=== PATIENT | female | born 1950 | race Caucasian/White ===

== ENCOUNTER 2017-02-10 10:48 | Inpatient (IN) | payer OTHER ==
[2017-01-23 14:17] VITALS: BMI 40.0
[2017-01-23 14:26] LABS: BASO % 0.5 %; BASO ABS # 0.04 K/uL (0-0.2); COMPLETE YES; EOS % 5.3 %; IG% 0.4 %; LYMPH ABS # 2.15 K/uL (1.2-3.4); MEAN CELL VOLUME 90.3 fL (80-100); MEAN CORPUSCULAR HGB CONC 34.4 g/dl (32-36); MEAN PLATELET VOLUME 9.5 fL (7.4-10.4); MONO % 6.1 %; NEUT % 58.7 %; PLATELET COUNT 298 K/uL (130-400); RED BLOOD COUNT 4.32 M/uL (4.2-5.4); WHITE BLOOD COUNT 7.41 K/uL (4.8-10.8)
[2017-01-23 14:43] LABS: PARTIAL THROMBOPLASTIN RATIO 1.1
[2017-01-23 15:35] LABS: BUN/CREATININE RATIO 17.8 (10-20); C-REACTIVE PROTEIN 1.37 mg/dl (0-0.29); CALCIUM 9.7 mg/dl (8.5-10.1); CREATININE 0.83 mg/dl (0.60-1.20); POTASSIUM 4.6 mmol/L (3.5-5.1)
--- NOTE | 2017-01-23 15:45 | DIAGNOSTIC IMAGING REPORT ---
CHEST 2 VIEWS ROUTINE CLINICAL HISTORY: Preoperative evaluation. COMPARISON STUDY: Chest radiograph January 05, 2010. FINDINGS: Lung volumes are normal. There is no pneumothorax or pleural effusion. Pulmonary vascularity is normal. Cardiomediastinal silhouette is stable. Cardiac size is at the upper limits of normal. IMPRESSION: No acute cardiopulmonary findings. Electronically signed by: Hector Varela M.D. 01/23/2017 3:43 PM Dictated Date/Time: 01/23/2017 3:42 PM
--- NOTE | 2017-01-24 09:09 | PAT Medication Instructions ---
Service Date Jan 24, 2017. Current Home Medication List Losartan Potassium (Cozaar), 25 MG PO QAM Naproxen (Aleve), 440 MG PO HS Sertraline (Zoloft), 25 MG PO QAM Medication Instructions For Your Scheduled Surgery Naproxen (Aleve), 440 MG PO HS Check with surgeon for instructions) - Hold the following medications the morning of surgery: Losartan Potassium (Cozaar), 25 MG PO QAM - Take the following medications the morning of surgery with a sip of water: Sertraline (Zoloft), 25 MG PO QAM If you have any questions please call us at [phone] (Katarzyna Gonzalez PA-C) or [phone] or [phone]
--- NOTE | 2017-02-04 01:33 | HISTORY & PHYSICAL EXAMINATION ---
DATE OF ADMISSION: 02/10/2017 CHIEF COMPLAINT: Right knee pain, discomfort after partial knee replacement. HISTORY OF PRESENT ILLNESS: A 66-year-old white female who is well known to me from a previous left partial knee replacement done back in 2009. She had a Repicci partial knee replacement in her right knee back in February of 2003. Over the past several years, she has developed increased pain and discomfort in her right knee. She has been followed by Dr. Hernandez. She has had several injections which provided some temporary relief only. Pain has become more debilitating. The more she walks, the more she limps. Pain is mostly medial. She would like to have her knee revised. Of note, the patient never had any history of infections, problems with the right knee. She did have an elevated sed rate and C-reactive protein. We attempted to aspirate her knee, but could not get much out of it. PAST MEDICAL HISTORY: Significant for: 1. Hypertension. 2. Arthritis. 3. Obesity, BMI 41. 4. Depression. PAST SURGICAL HISTORY: Include: 1. Left multiple wearing partial knee replacement done by myself on 02/26/2010. 2. Right Repicci partial knee replacement by done by Dr. Hernandez 02/26/2003. ALLERGIES: None. CURRENT MEDICATIONS: 1. Zoloft. 2. Unspecified blood pressure medicine. SOCIAL HISTORY: Over 66-year-old female. 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 She is . One drink per week. FAMILY HISTORY: Noncontributory. REVIEW OF SYSTEMS: Negative for diabetes, neurologic problems, vascular problems, bleeding disorders. No chest pain, no shortness of breath. No history of DVT or PE. PHYSICAL EXAMINATION: GENERAL: Reveals a healthy pleasant, middle-aged female. She looks in reasonably good health. HEENT: Benign. NECK: Supple. No lymphadenopathy. LUNGS: Clear to auscultation. HEART: Regular rate and rhythm. ABDOMEN: Soft, nontender, nondistended. EXTREMITIES: Grossly neurovascularly intact except as follows: Examination of the right lower extremity reveals the patient walks with an antalgic gait. She has got a well-healed anteromedial incision. She has a trace knee effusion. With weightbearing, she does go into more varus with a bit of a varus thrust. Range of motion is 5 degrees short of full extension and 20 degrees of flexion. X-RAYS: X-rays of the right knee reviewed. It shows collapse of her medial tibial plateau and failure of the Repicci knee replacement. She does have progression of arthritis laterally with osteophytes off the lateral femoral condyle and lateral tibial plateau. LABORATORY DATA: We did do a lab workup and white cell count was normal. Sed rate is slightly elevated at 38 and C-reactive protein 1.38. In light of this, we attempted to aspirate her knee, but did not get any fluid out. I do not think there is any significant chance of infection. ASSESSMENT: A 66-year-old white female 14 years out from a Repicci partial knee replacement with progression of her arthritis and failure of the partial knee replacement. The tibial components tipped into varus. She developed progressive arthritis around this. PLAN: We talked about treatment and she is ready to proceed with a definitive treatment. We will take her to the operating room and revise her partial to a full knee replacement. The risks and benefits of this procedure were explained to the patient including but not limited to DVT, PE, , infection, neurological injury, vascular injury, bleeding problem, pain, limited range of motion, stiffness, failure to relieve symptoms, incomplete relief of symptoms, fracture, leg length inequality, nerve palsy, etc. The patient understands and desires and informed consent was obtained. LUIS F
[~2017-02-10] VITALS: Ht 165.1 cm; Wt 111.3 kg
[~2017-02-10 10:48] MED LIST: ACETAMINOPHEN 500 MG TAB PO SCH; BUPIVACAINE 0.25% 30 ML VIAL ONE; BUPIVACAINE 0.5 % 5 MG/1 ML PF 10ML VIAL ONE; BUPIVACAINE LIPOSOME 266 MG, BUPIVACAINE/EPINEPHRINE INJ 50 ML, SODIUM CHLORIDE 0.9% PF... INFIL SCH; CEFAZOLIN 2000 MG/60 ML D5W 60 ML IV SCH; FAMOTIDINE 20 MG TAB PO SCH; GABAPENTIN 300 MG CAP PO SCH; LACTATED RINGER'S 1000ML 1,000 ML IV SCH; LACTATED RINGER'S 1000ML IV SCH; LOSA1TAB PO; METOCLOPRAMIDE HCL 10 MG TAB PO SCH; MIDAZOLAM HCL 1 MG/ML 2ML VIAL ONE; NAPR1TAB9 PO; PROPOFOL IV EMULSION 10 MG/ML 20 ML VIAL IV ONE; SCOPOLAMINE 1.5 MG TDSY TD SCH; SERT25TA PO; TRANEXAMIC ACID INJ 1,000 MG in SODIUM CHLORIDE 0.9% 100ML 100 ML IV SCH
[2017-02-10 11:19] VITALS: BP 176/84; PULSE 64; TEMP 36.4; O2SAT 94; Ht 165.1 cm; Wt 111.3 kg
--- NOTE | 2017-02-10 11:34 | History & Physical Bridge Note ---
H&P Re-Evaluation Bridge Note: I have examined the patient, reviewed the History & Physical and in the interval since the performance of the History & Physical I have noted the following changes of clinical significance: No changes noted
[2017-02-10] MEDS ORDERED: SODIUM CHLORIDE 0.9% PF 50 ML VIAL ONE (13:15)
[2017-02-10] MEDS ORDERED: BACITRACIN 50000 UNIT VIAL ONE ×2 (13:15→15:10)
[2017-02-10] MEDS ORDERED: BUPIVACAINE/EPINEPHRINE 0.25% 1:200,000 30 ML VIAL ONE ×2 (13:15→13:26)
[2017-02-10] MEDS ORDERED: BUPIVACAINE LIPOSOME 1/3% 266 MG/20 ML VIAL INFIL ONE (13:15)
[2017-02-10] MEDS ORDERED: VANCOMYCIN HCL 1000MG/20ML VIAL ONE (13:17)
[2017-02-10] MEDS ORDERED: ATROPINE SULFATE 0.1 MG/ML 5ML SYR IV PRN (13:30)
[2017-02-10] MEDS ORDERED: EpHEDrine SULFATE INJ 50 MG/ML AMP IV PRN (13:30)
[2017-02-10] MEDS ORDERED: KETOROLAC TROMETHAMINE 30 MG/ML VIAL IV. PRN (13:30)
[2017-02-10] MEDS ORDERED: ONDANSETRON INJ 2 MG/ML 2 ML VIAL IV PRN ×2 (13:30→16:00)
[2017-02-10] MEDS ORDERED: PHENYLEPHRINE 100MCG/ML 5ML SYR IV PRN (13:30)
[2017-02-10] MEDS ORDERED: HYDROmorphone INJ 2 MG/ML SYR/VIAL IV PRN (13:30)
[2017-02-10] MEDS ORDERED: MIDAZOLAM HCL 1 MG/ML 2ML VIAL ONE (13:40)
[2017-02-10] MEDS ORDERED: PROPOFOL IV EMULSION 10 MG/ML 20 ML VIAL IV ONE ×3 (14:08→14:12)
[2017-02-10] MEDS ORDERED: PHENYLEPHRINE 100MCG/ML 5ML SYR ONE (14:23)
--- NOTE | 2017-02-10 15:47 | [facility] Post Operative Brief Note ---
Immediate Operative Summary Operative Date Feb 10, 2017. 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 Andrade Patient Access Manager Surgeon(s) Joel Kessler PA-C Estimated Blood Loss 50mL Findings Failed Right Uni-Knee Progression of Arthritis Fluids (cc crystalloids) 1500cc Specimens Micro #1 Stat gram stain aerobic and anaerobic Right Knee sent at 1410 Specimens Drains None Anesthesia Spinal Complication(s) None Disposition Recovery Room / PACU
[2017-02-10] MEDS ORDERED: METOCLOPRAMIDE HCL INJ 5 MG/ML 2 ML VIAL IV PRN (16:00)
[2017-02-10] MEDS ORDERED: ALUMINUM/MAGNESIUM/SIMETH (MAALOX MAX) 30 ML UDC PO PRN (16:00)
[2017-02-10] MEDS: CHECK SCOPOLAMINE PATCH PLACEMENT SCH (16:00)
[2017-02-10] MEDS ORDERED: SILVER SULFADIAZINE 1% CR 50 GM JAR EXT PRN (16:00)
[2017-02-10] MEDS ORDERED: ZOLPIDEM TARTRATE 5 MG TAB PO PRN (16:00)
[2017-02-10] MEDS ORDERED: BISACODYL 10 MG SUPP PR PRN (16:00)
[2017-02-10] MEDS ORDERED: MAGNESIUM HYDROXIDE SUSP 30 ML UDC PO PRN (16:00)
--- NOTE | 2017-02-10 16:44 | DIAGNOSTIC IMAGING REPORT ---
RIGHT KNEE 1 OR 2 VIEWS ROUTINE CLINICAL HISTORY: Degenerative arthritis COMPARISON: None. DISCUSSION: There are postsurgical changes of a total right knee arthroplasty with a long stem tibial prosthesis. The femoral and tibial components appear well seated. Overlying surgical drains are evident. There are no acute fractures. There is air within soft tissues consistent with recent surgery. IMPRESSION: Postsurgical changes of a total right knee arthroplasty. Electronically signed by: Yuval Locke M.D. 02/10/2017 4:43 PM Dictated Date/Time: 02/10/2017 4:42 PM
--- NOTE | 2017-02-10 16:54 | Anesthesiology Progress Note ---
Anesthesia Post Op Note Date & Time Feb 10, 2017 at 16:54 Vital Signs Pain Intensity: 0 Vital Signs Past 12 Hours Date Time Temp Pulse Resp B/P Pulse Ox O2 Delivery O2 Flow Rate FiO2 02/10/17 16:45 36.5 59 17 147/72 98 Nasal Cannula 2 02/10/17 16:35 61 16 134/75 99 Nasal Cannula 2 02/10/17 16:25 61 16 151/75 100 Mask 10 02/10/17 16:15 66 17 125/77 100 Mask 10 02/10/17 16:05 70 14 163/70 100 Mask 10 02/10/17 15:55 36.3 79 15 155/77 97 Mask 10 02/10/17 11:19 36.4 64 18 176/84 94 Room Air Notes Mental Status: alert / awake / arousable, participated in evaluation Pt Amnestic to Procedure: Yes Nausea / Vomiting: adequately controlled Pain: adequately controlled Airway Patency, RR, SpO2: stable & adequate BP & HR: stable & adequate Hydration State: stable & adequate Neuraxial Anesthesia: was administered, sensory block is resolving Anesthetic Complications: no major complications apparent
[2017-02-10 17:10] VITALS: BP 142/77; PULSE 63; TEMP 36.5; O2SAT 97
[2017-02-10 17:40] VITALS: BP 145/75; PULSE 52; TEMP 36.4; O2SAT 100
[2017-02-10 18:10] VITALS: BP 149/78; PULSE 62; TEMP 36.3; O2SAT 100
[2017-02-10] MEDS: KETOROLAC TROMETHAMINE 15 MG/ML VIAL IV. SCH (18:23)
[2017-02-10] MEDS: D5W AND 1/2NSS + 20MEQ KCL 1,000 ML IV SCH (18:23)
[2017-02-10 19:10] VITALS: BP 152/82; PULSE 58; TEMP 36.3; O2SAT 99
[2017-02-10] MEDS: FERROUS GLUCONATE 324 MG TAB PO SCH (19:12)
[2017-02-10] MEDS: OXYCODONE HCL IR 5 MG TAB (IMMEDIATE RELEASE) PO PRN (19:12)
[2017-02-10] MEDS: MoRPHine SULFATE 2 MG/ML CARP IV PRN (19:49)
[2017-02-10 20:10] VITALS: BP 164/89; PULSE 58; TEMP 36.3; O2SAT 98
[2017-02-10] MEDS: ASPIRIN 325 MG ECTAB PO SCH (20:36)
[2017-02-10] MEDS: DOCUSATE SODIUM 100 MG CAP PO SCH (20:37)
[2017-02-10] MEDS: TAPENTADOL ER 50 MG TABCR PO SCH (20:37)
[2017-02-10] MEDS: ACETAMINOPHEN 500 MG TAB PO SCH (21:38)
[2017-02-10] MEDS: CEFAZOLIN IV 2,000 MG in DEXTROSE 5% 50ML 50 ML IV SCH (21:57)
[2017-02-10] MEDS ORDERED: TRANEXAMIC ACID INJ 1,000 MG in SODIUM CHLORIDE 0.9% 100ML 100 ML IV SCH (22:00)
[2017-02-11] VITALS (8 sets, daily range): BP systolic 115–165; BP diastolic 68–85; PULSE 67–83; TEMP 36.8–37.3; O2SAT 90–96
[2017-02-11] MEDS: CHECK SCOPOLAMINE PATCH PLACEMENT SCH ×4 (00:07→23:35)
[2017-02-11] MEDS: KETOROLAC TROMETHAMINE 15 MG/ML VIAL IV. SCH ×5 (00:08→23:35)
[2017-02-11] MEDS: D5W AND 1/2NSS + 20MEQ KCL 1,000 ML IV SCH ×2 (03:05→09:10)
[2017-02-11] MEDS: CEFAZOLIN IV 2,000 MG in DEXTROSE 5% 50ML 50 ML IV SCH (06:16)
[2017-02-11] MEDS: ACETAMINOPHEN 500 MG TAB PO SCH ×3 (06:17→20:59)
[2017-02-11 06:36] LABS: HEMATOCRIT 33.9 % (37-47); MEAN CELL VOLUME 93.6 fL (80-100); MEAN CORPUSCULAR HEMOGLOBIN 30.9 pg (25-34); MEAN PLATELET VOLUME 9.7 fL (7.4-10.4); PLATELET COUNT 252 K/uL (130-400); RED BLOOD COUNT 3.62 M/uL (4.2-5.4); WHITE BLOOD COUNT 8.45 K/uL (4.8-10.8)
[2017-02-11 07:13] LABS: BUN/CREATININE RATIO 16.9 (10-20); CREATININE 0.89 mg/dl (0.60-1.20); POTASSIUM 4.1 mmol/L (3.5-5.1)
[2017-02-11] MEDS: ASPIRIN 325 MG ECTAB PO SCH ×2 (08:22→20:58)
[2017-02-11] MEDS: MULTIVITAMIN TAB PO SCH (08:22)
[2017-02-11] MEDS: LOSARTAN POTASSIUM 25 MG TAB PO SCH (08:22)
[2017-02-11] MEDS: SERTRALINE HCL 50 MG TAB PO SCH (08:22)
[2017-02-11] MEDS: FERROUS GLUCONATE 324 MG TAB PO SCH ×3 (08:22→17:30)
[2017-02-11] MEDS: DOCUSATE SODIUM 100 MG CAP PO SCH ×2 (08:22→20:59)
[2017-02-11] MEDS: PANTOprazole SOD 40 MG TAB PO SCH (08:23)
[2017-02-11] MEDS: TAPENTADOL ER 50 MG TABCR PO SCH ×2 (08:26→20:59)
--- NOTE | 2017-02-11 08:49 | PROGRESS NOTE ---
DATE: 02/11/2017 SUBJECTIVE: A 66-year-old white female postop day 1 from a revision of partial to full knee replacement. She is doing pretty well. Pain has not been bad at all. No chest pain or shortness of breath. Not feeling dizzy or lightheaded. OBJECTIVE: VITAL SIGNS: Temperature 37.2. Vital signs stable. PHYSICAL EXAMINATION: GENERAL: Reveals a pleasant middle-aged female. She is lying in bed, looks pretty comfortable. LUNGS: Clear to auscultation. HEART: Regular rate and rhythm. ABDOMEN: Soft, nontender, nondistended. EXTREMITIES: Grossly neurovascularly intact except as follows: Examination of the right leg reveals dressing to be clean, dry and intact. She can dorsiflex and plantarflex her foot appropriately. NEUROLOGIC: She is neurologically intact. LABORATORY DATA: Hemoglobin 11.2, hematocrit 33.9. Electrolytes are stable. CULTURE RESULTS: Culture results are pending. Gram stain, a few WBCs, no organisms. ASSESSMENT: This is a 66-year-old white female postop day 1 from revision of a partial to full knee replacement, doing well. Pain is controlled. There are no concerns for infection. PLAN: 1. DVT prophylaxis including thigh-high TEDs, SCDs, and aspirin twice a day. 2. PT/OT. Weightbearing as tolerated. Right total knee protocol. 3. Pain control, doing pretty well with current pain regimen. 4. Disposition: Plan to discharge to home with some home health once adequately recovered.
[2017-02-11] MEDS: OXYCODONE HCL IR 5 MG TAB (IMMEDIATE RELEASE) PO PRN (13:39)
[2017-02-11] MEDS: MoRPHine SULFATE 2 MG/ML CARP IV PRN (14:17)
[2017-02-11] MEDS ORDERED: RXC5 PO (20:20)
[2017-02-11] MEDS ORDERED: ASPEC325 PO (20:20)
[2017-02-11] MEDS ORDERED: ACET-1138 PO (20:20)
--- NOTE | 2017-02-11 20:23 | Discharge Instructions ---
Discharge Instructions Date of Service Feb 11, 2017. Admission Reason for Admission: Right Knee Pain, Degenerative Joint Disease Discharge Discharge Diagnosis / Problem: Right Knee Replacement Discharge Goals Goal(s): Decrease discomfort, Improve function, Increase independence, Improve disease control, Therapeutic intervention Activity Recommendations Activity Limitations: per Instructions/Follow-up section Weightbearing Status: Right weightbearing . Instructions / Follow-Up Instructions / Follow-Up ACTIVITY RECOMMENDATIONS: Physical Therapy: * You will go to physical therapy three times each week for four to six weeks after your surgery in order to regain your knee range of motion and to retrain your knee to work properly. * It is just as important to make sure you are getting your knee perfectly straight as it is to regain your knee bend. * Taking a pain pill an hour before therapy can help you have a more productive and comfortable therapy session. Home Exercise: * You were shown a series of exercises (heel props, heel slides, etc.) in the hospital. Do these exercises three to four times each day including the exercises you were shown in physical therapy. Walking: * Get up and walk several times each day. For the first four weeks, try not to stand or walk for more than one hour at a time. If you do stand or walk for more than one hour, you will not hurt anything, but your knee and leg will likely swell. * As you feel comfortable, you may change from the walker or crutches to a cane and then to independent walking. MEDICATIONS: New Medicine: * You will likely be taking one or more of these medications: 1. Oxycodone - A quick and shorter-acting pain medication. Take one to two tablets every four to six hours to lessen your pain. 2. Aspirin - Thins your blood to lessen the chance of forming a blood clot. * The most common side effects of pain medicine and iron are nausea and constipation. If nausea or constipation is too much of a problem or if you have any questions about your new medicines or doses, call [facility] at . We will try to help you manage these issues. VERY IMPORTANT TO READ AND REVIEW" Pain: * The immediate post-operative period after knee replacement surgery is often quite painful. * You are given a prescription for pain medicine. You should take it, as directed, when you need it, especially before physical therapy and before going to bed. Pain that interferes with sleep is very common and can last several months. * You will likely need pain medicine for the first four to six weeks. It will not stop all of the pain. The pain will lessen and as you feel better, you may change to milder pain medicine such as Tylenol. * The most common side effects of pain medicine are nausea and constipation, so don't take more than you need. SPECIAL CARE INSTRUCTIONS: TEDs/Elastic Stockings: * The white elastic stockings help limit swelling and prevent blood clots from forming in your legs. The more you wear them, the more they work. * Wear them for six weeks after knee replacement surgery and four weeks after partial knee replacement. Prevention of Infection: * Take antibiotics one hour before any dental cleaning, dental work, urological procedure, gastrointestinal procedure or any invasive surgery in order to prevent your new joint from getting infected. * You may get the antibiotics from the doctor performing the procedure or you may call our office at before and we will call in a prescription to the pharmacy of your choice. Things to Watch For: * Drainage from the incision site that occurs more than one week after your surgery. * Severely increased knee/leg pain or swelling. * Increased redness at the incision site. * Fever above 102 degrees Fahrenheit. * Unusual chest pain or shortness of breath. * Unusual pain or burning with urination. Call [facility] at with any of the above problems or if you have any questions about your medicines or recovery. FOLLOW UP VISIT: Make an appointment to see your doctor for approximately two weeks after surgery for a progress check and staple removal by calling the office at . Current Hospital Diet Patient's current hospital diet: Regular Diet Discharge Diet Recommended Diet: Regular Diet Procedures Procedures Performed: Right knee uni compartment revision to Right Total Knee Arthoplasty Pending Studies Studies pending at discharge: no Medical Emergencies . Who to Call and When: Medical Emergencies: If at any time you feel your situation is an emergency, please call [phone] immediately. . Non-Emergent Contact Non-Emergency issues call your: Surgeon . "Provider Documentation" section prepared by Herb Andrade. . VTE Core Measure Inpt VTE Proph given/why not?: Other Anticoagulation, T.E.D. Stockings, SCD's
[2017-02-12] MEDS: ACETAMINOPHEN 500 MG TAB PO SCH (04:54)
[2017-02-12] MEDS: KETOROLAC TROMETHAMINE 15 MG/ML VIAL IV. SCH (04:56)
[2017-02-12 07:45] VITALS: BP 143/86; PULSE 69; TEMP 37; O2SAT 94
--- NOTE | 2017-02-12 08:28 | PROGRESS NOTE ---
DATE: 02/12/2017 SUBJECTIVE: A 66-year-old white female postop day #2 from revision of a partial to full knee replacement. She is doing pretty well. Painful after therapy and that is about it. No chest pain or shortness of breath. Not feeling dizzy or lightheaded. OBJECTIVE: VITAL SIGNS: Temperature 37.3. Vital signs stable. PHYSICAL EXAMINATION: GENERAL: Reveals a pleasant elderly female. She is lying in bed, looks pretty comfortable. EXTREMITIES: Examination of the right leg reveals the dressing to be clean, dry and intact. Some moderate swelling. She can do a straight leg raise with quite a bit of effort. She can dorsiflex and plantarflex her foot appropriately. She is neurologically intact. LABORATORY DATA: Culture results are no growth to date. ASSESSMENT: A 66-year-old white female postop day #2 from a right revision partial to full knee replacement, doing pretty well. Pain has been reasonably well controlled. PLAN: 1. DVT prophylaxis including thigh-high TEDs, SCDs, and aspirin twice a day. 2. PT/OT. Weightbearing as tolerated. Right total knee protocol. 3. Pain control, doing pretty well with current pain regimen. 4. Disposition: Plan to discharge to home with some home health later today. LUIS F
[2017-02-12] MEDS: OXYCODONE HCL IR 5 MG TAB (IMMEDIATE RELEASE) PO PRN (08:52)
[2017-02-12] MEDS: MULTIVITAMIN TAB PO SCH (08:53)
[2017-02-12] MEDS: SERTRALINE HCL 50 MG TAB PO SCH (08:53)
[2017-02-12] MEDS: PANTOprazole SOD 40 MG TAB PO SCH (08:53)
[2017-02-12] MEDS: ASPIRIN 325 MG ECTAB PO SCH (08:53)
[2017-02-12] MEDS: FERROUS GLUCONATE 324 MG TAB PO SCH (08:53)
[2017-02-12] MEDS: LOSARTAN POTASSIUM 25 MG TAB PO SCH (08:53)
[2017-02-12] MEDS: DOCUSATE SODIUM 100 MG CAP PO SCH (08:53)
[2017-02-12] MEDS: TAPENTADOL ER 50 MG TABCR PO SCH (08:56)
[2017-02-12 09:40] VITALS: BP 151/79; PULSE 73; O2SAT 93
[2017-02-12 10:19] VITALS: BP 143/86; PULSE 69; TEMP 37; O2SAT 94
--- NOTE | 2017-02-13 07:54 | OPERATIVE REPORT ---
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 POSTOPERATIVE DIAGNOSIS: Same. PROCEDURES PERFORMED: Revision of right unicompartmental knee arthroplasty to total knee replacement. COMPLICATIONS: None. ESTIMATED BLOOD LOSS: 50 mL. FLUID REPLACEMENT: 1500 mL crystalloid fluid replacement. TOURNIQUET TIME: 90 minutes at 300 mmHg. ANESTHESIA: Spinal with adductor canal block. DRAINS: None. SPECIMENS: Fluid sent for stat Gram stain, aerobic and anaerobic culture. Tissue was sent for permanent. No frozen section was obtained. OPERATIVE INDICATIONS: The patient is a 66-year-old female who is now 14 years out from a Repicci partial knee replacement on the right side. She did quite well for about 10 years or so but over the past year, she has developed marked increased pain and discomfort that has become more debilitating. She has failed conservative treatment. X-rays showed progressive deterioration of her right partial knee replacement. The patient elected to proceed with surgical intervention. During her workup, her sed rate and C-reactive protein were just mildly elevated. I did attempt to aspirate her knee, but was unsuccessful at getting any fluid off. OPERATIVE FINDINGS: Operative findings revealed a worn failed partial knee replacement. She had degenerative changes around the medial femoral component and marked wear of her polyethylene insert. Neither component was loose. There was progressive arthritic change in the patellofemoral joint with grade 4 changes. The lateral compartment was still pretty well preserved, although there were some signs of wear. Additionally, she really did not have much of a knee effusion upon entering the joint which was consistent with our attempted aspiration. There were no clinical signs or suspicion for infection and therefore we did not sent off for frozen section. The Gram stain showed rare WBCs, no organisms. OPERATIVE IMPLANTS: Operative implants consisted of: 1. A Biomet Vanguard size 65 right posterior stabilized femoral component. 2. A Biomet size 71 tibial tray with a 14 x 80 mm offset stem extension with 5 mm offset. 3. A 14 mm posterior stabilized polyethylene insert. 4. A 31 x 8 all poly patella. OPERATIVE PROCEDURE: The patient taken to the operating and identified and placed on the operating table in supine position. All contact areas were appropriately padded. IV antibiotics were provided by anesthesia team. A spinal anesthetic and adductor canal block had been provided in the holding area. Frey catheter was placed in sterile fashion. A right thigh tourniquet was then placed and the right lower extremity was then prepped and draped in usual sterile fashion. The right leg was elevated and exsanguinated with Esmarch and tourniquet was placed at 300 mmHg. An anterior approach to the right knee was then performed through a longitudinal incision using the previous incision and then extending it more distally and proximally. Sharp dissection was carried through subcutaneous tissues down the level to the extensor mechanism. A medial parapatellar arthrotomy incision was made. I sent some fluid for stat gram stain and culture. The gram stain showed rare WBCs and no organisme. I elected to proceed with revision. Some subperiosteal dissection was carried out medially. The fat pad was resected from beneath the patellar tendon. The lateral patellofemoral ligament was released. The patella was everted and the knee was flexed. The osteophytes were taken off the distal femur. The ACL and PCL were released from the distal femur. The tibia subluxated anteriorly. I then resected the medial eminence. I then entered the tibial canal and we reamed up to a size 14. I used the intramedullary guide to cut the tibia. We cut it just below the polyethylene insert of the medial side of the knee. He got a nice bony surface. We sized this to a size 71. I elected to wait and repair this until I prepared the femur in order to allow us to prepare the tibia more easily as it got more reamed. Attention was then drawn to the distal femur and tibia. The distal femur was entered with a sharp drill. Intramedullary canal was suctioned. A right 5 degree valgus cutting guide was placed and distal cutting block was pinned in place. Distal femoral cut was made to take an additional 3 mm of bone off the distal femur. Upon cutting this, I did cut into the implant. I then had to use the ACL saw to loosen it up and an osteotome to remove the femoral component. I then completed the distal femoral cut. The femur was then sized to a size 65. The AP cutting block was pinned parallel to the epicondylar axis. The rotation was not assessed as there was a deficiency of the medial femoral condyle. The anterior cut, anterior chamfer, posterior cut, posterior chamfer cuts were made. Box cutting guide was placed and adjusted slightly lateral and the box cut was made. The knee was flexed. The remnants of the medial and lateral menisci were excised. The osteophytes were taken off the posterior aspect of the femur. Attention was then drawn back to the tibia. The tibia subluxated anteriorly. I selected a 71 tray. A 5 mm offset stem was placed and I did drill for the tibial stem. We assembled a trial implant and it fit quite nicely. A trial femoral component was placed. The knee was then trialed and the 14 mm insert fit most appropriately. Attention was then drawn to the patella. Patella was cleaned of all soft tissues. Patella thickness measured 23 mm and it was cut down to 14. It was sized to a size 31 patella. Lug holes were drilled for the 31 patella. The lateral osteophytes were removed and the knee was taken through range of motion and the patella tracked nicely with no thumbs test. Attention was then drawn toward placement of the permanent components. All trial components were removed. A bone plug was placed in the distal femur to limit blood loss. A double batch of Palacos G cement was mixed. I did place an additional gram of vancomycin in the cement due to the multiple surgeries she has had in the past. A 65 posterior stabilized femoral component, size 71 tibial tray with a 14 x 80 mm offset stem extension was placed followed by a 31 x 8 all poly patella. Knee was brought out into full extension until cement hardened. We did just cement the metaphysis of the tibial tray and not the stem. Once the cement hardened, final cement check was then performed. The pericapsular tissues were injected with 100 mL of a combination of 20 mL of Exparel, 30 mL of normal saline, 50 mL of 0.25% Marcaine with epinephrine. The tourniquet was then let down for a tourniquet time of 90 minutes. Hemostasis was assured with use of electrocautery. The extensor mechanism was then closed with a combination of #1 PDS suture and #1 Vicryl suture in a [id number] fashion. Extensor mechanism was checked and found to be intact. The subcutaneous tissues were then closed with 2-0 Dexon suture in a buried interrupted fashion. Skin was closed skin reinier. Leg was then cleaned and dried and a sterile dressing composed of Xeroform, 4 x 4, sterile cast padding and an Wilman bandage were applied. The patient was then transferred to the recovery room in stable condition. The patient tolerated the procedure well with no complications. All needle and sponge counts were correct at the end of the operation. ADDENDUM: On entering the knee joint, we did culture what fluid was there. There was not much fluid there, but this was sent off for stat Gram stain, aerobic and anaerobic culture. The Gram stain came back as rare WBCs, no organisms. In light of this, in the clinical picture, I did not send off for frozen section as I was confident that there was no signs of infection there. I attest to the content of the Intraoperative Record and any orders documented therein. Any exceptions are noted below. CHERYLD
--- NOTE | 2017-02-23 01:20 | DISCHARGE SUMMARY ---
ADMITTING PHYSICIAN AND SURGEON: Dr. Andrade. 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 PROCEDURE PERFORMED: Revision of a right unicompartmental knee arthroplasty to a total knee replacement. SECONDARY DIAGNOSES: Include hypertension, arthritis, obesity, and depression. CONSULTS: None obtained. HISTORY AND PHYSICAL EXAMINATION: Well documented in the patient's chart. HOSPITAL COURSE: The patient was admitted on 02/10/2017, underwent a revision of a partial knee replacement to total knee replacement. She tolerated procedure well. There were no complications. She was transferred to the PACU postoperatively and later to the orthopedic floor for further care. She was given Ancef for antibiotic prophylaxis, KESHIA stockings, SCDs and aspirin for DVT prophylaxis. She had intraoperative cultures done, which showed no organisms and no growth. Her hemoglobin, hematocrit and vital signs were monitored during her hospital stay and remained stable. She developed some postoperative anemia and did not require any blood transfusions. There were no complications. By postoperative day 2, she was tolerating a general diet, pain was controlled with oral pain medicine. She was participating in physical therapy and no signs or symptoms of deep vein thrombosis. On postoperative day 2, she was discharged home and set up with home health services, given printed discharge instructions including prescriptions for Extra Strength Tylenol, aspirin 325 mg b.i.d., oxycodone, continue her home medications, continue physical therapy, weightbearing as tolerated and KESHIA stockings. Follow up in 10-12 days or sooner if there are any problems or concerns.
[2017-02-28] MEDS ORDERED: XARELTO PO (07:43)
[2017-02-28] MEDS ORDERED: PRT40 PO (07:43)
[2017-02-28] MEDS ORDERED: XRL15 PO (07:43)
== END 2017-02-12 12:05 | disposition home health service (06) | DRG 467 ==
LOC: ENRESERVTM → ENRESERVDT → C.ACU 10:48 → C.3E 11:15
PROVIDERS: ADMIT Orthopaedic Surgery Sports Medicine; ATTEND Orthopaedic Surgery Sports Medicine
PROC: 0SPC0JZ Removal of Synthetic Substitute from Right Knee Joint, Open Approach (ICD-10-PCS; principal; 2017-02-10 13:00)
PROC: 0SRC0J9 Replacement of Right Knee Joint with Synthetic Substitute, Cemented, Open Approach (ICD-10-PCS; principal; 2017-02-10 13:00)
DX: T84.062A Wear of articular bearing surface of internal prosthetic right knee joint, initial encounter (principal); Z68.41 Body mass index [BMI] 40.0-44.9, adult; Y79.2 Prosthetic and other implants, materials and accessory orthopedic devices associated with adverse incidents; M17.11 Unilateral primary osteoarthritis, right knee; I10 Essential (primary) hypertension; F32.9 Major depressive disorder, single episode, unspecified; E66.9 Obesity, unspecified; Z96.653 Presence of artificial knee joint, bilateral; Z79.1 Long term (current) use of non-steroidal anti-inflammatories (NSAID); Z79.899 Other long term (current) drug therapy

== ENCOUNTER 2017-02-26 10:36 | Inpatient (IN) | payer OTHER ==
[~2017-02-26] VITALS: Ht 165.1 cm; Wt 100.0 kg
[~2017-02-26 10:36] MED LIST changes: +ACET-1138 PO; -ACETAMINOPHEN 500 MG TAB PO SCH; +ASPEC325 PO; -BUPIVACAINE 0.25% 30 ML VIAL ONE; -BUPIVACAINE 0.5 % 5 MG/1 ML PF 10ML VIAL ONE; -BUPIVACAINE LIPOSOME 266 MG, BUPIVACAINE/EPINEPHRINE INJ 50 ML, SODIUM CHLORIDE 0.9% PF... INFIL SCH; -CEFAZOLIN 2000 MG/60 ML D5W 60 ML IV SCH; -FAMOTIDINE 20 MG TAB PO SCH; -GABAPENTIN 300 MG CAP PO SCH; -LACTATED RINGER'S 1000ML 1,000 ML IV SCH; -LACTATED RINGER'S 1000ML IV SCH; -METOCLOPRAMIDE HCL 10 MG TAB PO SCH; -MIDAZOLAM HCL 1 MG/ML 2ML VIAL ONE; -PROPOFOL IV EMULSION 10 MG/ML 20 ML VIAL IV ONE; +RXC5 PO; -SCOPOLAMINE 1.5 MG TDSY TD SCH; -TRANEXAMIC ACID INJ 1,000 MG in SODIUM CHLORIDE 0.9% 100ML 100 ML IV SCH
[2017-02-26] MEDS ORDERED: ONDANSETRON INJ 2 MG/ML 2 ML VIAL IV STA (11:10)
[2017-02-26] MEDS ORDERED: SODIUM CHLORIDE 0.9% 1000ML 1,000 ML IV STA (11:10)
[2017-02-26 11:20] LABS: BASO % 0.3 %; BASO ABS # 0.03 K/uL (0-0.2); COMPLETE YES; EOS % 0.6 %; HEMATOCRIT 37.8 % (37-47); IG% 0.1 %; LYMPH % 11.9 %; LYMPH ABS # 1.42 K/uL (1.2-3.4); MEAN CELL VOLUME 93.8 fL (80-100); MEAN CORPUSCULAR HEMOGLOBIN 31.8 pg (25-34); MEAN CORPUSCULAR HGB CONC 33.9 g/dl (32-36); MEAN PLATELET VOLUME 9.2 fL (7.4-10.4); MONO % 5.2 %; NEUT % 81.9 %; PLATELET COUNT 317 K/uL (130-400); RED BLOOD COUNT 4.03 M/uL (4.2-5.4); WHITE BLOOD COUNT 11.93 K/uL (4.8-10.8)
[2017-02-26 11:37] LABS: ALT/SGPT 16 U/L (12-78); AST/SGOT 12 U/L (15-37); BLOOD UREA NITROGEN 14 mg/dl (7-18); BUN/CREATININE RATIO 16.6 (10-20); CALCIUM 9.6 mg/dl (8.5-10.1); CARBON DIOXIDE 24 mmol/L (21-32); CHLORIDE 104 mmol/L (98-107); CREATININE 0.82 mg/dl (0.60-1.20); GLUCOSE 134 mg/dl (70-99); POTASSIUM 3.8 mmol/L (3.5-5.1); SODIUM 138 mmol/L (136-145)
--- NOTE | 2017-02-26 11:43 | DIAGNOSTIC IMAGING REPORT ---
CHEST ONE VIEW PORTABLE CLINICAL HISTORY: Shortness of breath. COMPARISON STUDY: Chest radiograph January 23, 2017. FINDINGS: Lung volumes are normal. There is no consolidation or evidence of pulmonary edema. Mild left basilar opacity favors atelectasis. Moderate cardiomegaly is unchanged. There is no evidence of pulmonary edema. IMPRESSION: No acute cardiopulmonary findings. Electronically signed by: Hector Varela M.D. 02/26/2017 11:41 AM Dictated Date/Time: 02/26/2017 11:36 AM
[2017-02-26 11:45] LABS: ALKALINE PHOSPHATASE 79 U/L (45-117)
[2017-02-26] MEDS ORDERED: OPTIRAY 320 IV PRN (12:15)
[2017-02-26 12:20] LABS: INR 1.1 (0.9-1.1); PROTHROMBIN TIME (PATIENT) 12.2 SECONDS (9.0-12.0)
--- NOTE | 2017-02-26 12:28 | DIAGNOSTIC IMAGING REPORT ---
CT ANGIOGRAPHY OF THE CHEST, PULMONARY EMBOLUS PROTOCOL CLINICAL HISTORY: Recent knee surgery. Chest pain and increasing shortness of breath. COMPARISON STUDY: Chest radiograph January 23, 2017. TECHNIQUE: Following IV administration of 93 mL of Optiray-320, helical axial images of the chest were obtained utilizing the pulmonary embolus protocol. Maximal intensity projections and sagittal and coronal reformats were viewed on an independent 3D workstation. IV contrast was administered without complication. CT DOSE: 450.45 mGy.cm FINDINGS: There are extensive pulmonary emboli throughout the lobar and segmental branches of both lungs. There is no saddle pulmonary embolus. The heart is moderately enlarged. There is mild straightening of the interventricular septum. There is no pericardial effusion. Central airways are patent. There is no pneumothorax. Subpleural groundglass opacities are noted. The appearance favors atelectasis although a small infarct would be difficult to exclude on this exam. A 3 mm left upper lobe subpleural nodule is likely benign. Bony thorax is unremarkable. There is suspected fatty infiltration of the liver. IMPRESSION: 1. Extensive bilateral pulmonary emboli with mild straightening of the interventricular septum which raises the possibility of right heart strain. Discussed with Dr. Morton at time of dictation. 2. Subpleural opacities which favor atelectasis. A small left lower lobe pulmonary infarct could be difficult to exclude. 3. Moderate cardiomegaly. Electronically signed by: Hector Varela M.D. 02/26/2017 12:26 PM Dictated Date/Time: 02/26/2017 12:19 PM
[2017-02-26] MEDS ORDERED: HEPARIN SOD 5000 UNIT/0.5 ML CARP ONE (12:44)
[2017-02-26] MEDS ORDERED: HEPARIN 25000 UNIT/500 ML D5W ONE (12:45)
[2017-02-26 13:00] LABS: PARTIAL THROMBOPLASTIN RATIO 1.1
[2017-02-26] MEDS ORDERED: POLYETHYLENE (MIRALAX) 17 GM PACK PO PRN (13:15)
[2017-02-26] MEDS ORDERED: MAGNESIUM HYDROXIDE SUSP 30 ML UDC PO PRN (13:15)
[2017-02-26] MEDS ORDERED: ACETAMINOPHEN 325 MG TAB PO PRN (13:15)
[2017-02-26] MEDS ORDERED: ZOLPIDEM TARTRATE 5 MG TAB PO PRN (13:15)
[2017-02-26] MEDS ORDERED: ALUMINUM/MAGNESIUM/SIMETH (MAALOX MAX) 30 ML UDC PO PRN (13:15)
[2017-02-26] MEDS ORDERED: ONDANSETRON INJ 2 MG/ML 2 ML VIAL IV PRN (13:15)
[2017-02-26] MEDS ORDERED: HEPARIN 25,000 UNIT/500ML D5W 500 ML IV PRN (13:30)
[2017-02-26] MEDS ORDERED: OXYCODONE HCL IR 5 MG TAB (IMMEDIATE RELEASE) PO PRN (13:30)
[2017-02-26] MEDS ORDERED: PANTOprazole SOD 40 MG TAB PO STA (13:33)
--- NOTE | 2017-02-26 13:55 | Progress Note ---
Progress Note Date of Service February 26, 2017. 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
[2017-02-26] MEDS: SODIUM CHLORIDE 0.9% 1000ML 1,000 ML IV SCH ×2 (14:05→15:47)
--- NOTE | 2017-02-26 14:13 | HISTORY & PHYSICAL EXAMINATION ---
DATE OF ADMISSION: 02/26/2017 This is a level 3 inpatient admission, 35 minutes. CHIEF COMPLAINT: Worsening shortness of breath. HISTORY OF PRESENT ILLNESS: The patient is a 66-year-old white female with a significant past medical history of morbid obesity, hypertension, arthritis, depression and had a recent right knee replacement coming to the hospital Emergency Department because of the above chief complaint. The patient reported feeling persistent illness for 3 days, decreased energy levels, not able to eat well, associated with shortness of breath with dry cough. Reported getting chest pain, radiation to the back. She was not able to sleep well because of the pain. It was associated with some nauseation and vomiting, but it is getting better. The patient reported had recently right total knee arthroplasty surgery done by Dr. Andrade. After discharge to home, she has been on aspirin for DVT prophylaxis. PAST MEDICAL HISTORY: Like I mentioned in the above. PAST SURGICAL HISTORY: Include right knee arthroplasty. FAMILY HISTORY: Noncontributory. SOCIAL HISTORY: The patient history of remote smoking. No more smoking. The patient is . Denied alcohol abuse disorder, denied illicit drug abuse. MEDICATIONS: Taking at home include Tylenol 1000 mg p.o. q. 8 hours, aspirin 325 mg p.o. b.i.d., losartan 25 mg p.o. q.a.m., naproxen 440 mg p.o. at bedtime, Losartan 25 mg p.o. q.a.m., and oxycodone 5 mg q. 4 hours p.r.n. for the pain. ALLERGIES: No known drug allergies. PHYSICAL EXAMINATION: VITAL SIGNS: Temperature 36.6, pulse 84, respiratory rate 20, blood pressure 120/77. Oxygen saturation 91% in room air. GENERAL: The patient is a white female, awake, alert and orientated, morbid obesity, reports some distress and difficulty breathing. HEAD: Normocephalic. EYES: Pupils equal, round responds to light. EARS: Ear was normal. NOSE: Normal. NECK: Supple. Thyroid no enlargement. Trachea midline. LUNGS: Decreased breathing sounds. There was no wheezing, rhonchi or crackles. HEART: S1, S2, has no murmur. ABDOMEN: Soft, nontender. Bowel sound was positive. No guarding, no rebound. LOWER BACK: CVA was nontender. SKIN: No rashes or bluish. EXTREMITIES: Upper and lower extremity muscle strength was grossly normal. Lower extremity has no obvious swelling. Right knee has incisions postop NEUROLOGICAL EVALUATION: Cranial nerves II-XII was intact. REVIEW OF SYSTEMS: Please see HPI, otherwise 14 points organ system review were negative. LABORATORY STUDIES: WBC 11, hemoglobin 12, platelets 317. D-dimer is 35,000. PT/INR was 12/1. BMP was within normal limits. BUN 14, creatinine 0.8. Troponins 1.67. Lipase 83. IMAGING STUDIES: In the Emergency Room which include chest x-ray and CT angio of the chest. CTA of the chest shows extensive bilateral pulmonary embolization with mild strain of the intraventricular septums which raises possibility of right heart strain, subpleural opacities which favors atelectasis. Moderate cardiomegaly. ASSESSMENT AND PLAN: A 66-year-old white female with the problem below: 1. Acute bilateral pulmonary embolisms with right heart strain. 2. morbid obesity, 3. hypertension, 4. arthritis with Recent right knee surgeries. 5. Elevated troponin. 6. Anxiety. 7. epression For the above conditions of acute PE with right heart strain. I invited cultural historian to see the patient, who feels the patient currently hemodynamically stable. A chest CT was reviewed, there was thrombosis within the distal of the pulmonary article. Sales And Service Agent dose not recommend to admission ICU. Start heparin drip, I agree with that. But if we have any questions, or patient's conditions changes we can call cultural historian. We are setting up parameters for nursing staff to call the physicians if anything changes, especially hemodynamically changed. Continued PPI because she was nausea and vomiting. HTN, depression Continue home medicines. GI and DVT prophylaxis is covered. MTDD
--- NOTE | 2017-02-26 14:58 | EMERGENCY ROOM VISIT NOTE ---
History Report prepared by Willy: Zeyad Mar Under the Supervision of: Dr. Ace Morton D.O. First contact with patient: 10:56 Chief Complaint: RESPIRATORY PROBLEMS Stated Complaint: HARD TIME BREATHING History of Present Illness The patient is a 66 year old female who presents to the Emergency Room with complaints of a persistent illness that started 3 days ago. She says that she has felt like "crap". The patient states that she cannot eat or keep anything down. She has been short of breath with a cough as well. The patient states that when she breathes, she gets chest pain that radiates straight into her back. She says that the pain is not there if she is not breathing. The patient says the pain kept her up all night, and she started vomiting last night. Her vomiting has subsided today, because she hasn't tried to eat or drink anything today. The patient notes that she kept going between feeling freezing and hot last night. She had a right knee replacement surgery [address] Andrade, and has been on aspirin once per day since then. She has no history of COPD, asthma, blood clots, or heart problems. Source of History: patient Onset: 3 days ago Position: other (global - illness) Timing: other (persistent) Associated Symptoms: + SOB, + back pain (with breathing), + chest pain ( with breathing), + cough, + vomiting Note: Associated symptoms: Alternating between feeling freezing and hot last night. Cannot keep anything down. Review of Systems See HPI for pertinent positives & negatives. A total of 10 systems reviewed and were otherwise negative. Past Medical & Surgical Medical Problems: (1) acute PE with right heart strain (2) acute PE with right heart strain (3) Failed Partial Knee Replacement Family History No pertinent family history Social History Smoking Status: Former Smoker Marital Status: Occupation Status: employed Current/Historical Medications Scheduled Acetaminophen (Tylenol Extra Strength), 1,000 MG PO Q8H Aspirin (Aspirin), 325 MG PO BID Losartan Potassium (Cozaar), 25 MG PO QAM Naproxen (Aleve), 440 MG PO HS Sertraline (Zoloft), 25 MG PO QAM Scheduled PRN Oxycodone HCl (Oxycodone HCl), 5 MG PO Q4H PRN for Pain Allergies Coded Allergies: No Known Allergies (Unverified , 02/26/17) NFA Physical Exam Vital Signs Date Time Temp Pulse Resp B/P Pulse Ox O2 Delivery O2 Flow Rate FiO2 02/26/17 13:33 84 20 141/77 94 Nasal Cannula 2.0 02/26/17 12:11 85 20 127/78 94 Nasal Cannula 2.0 02/26/17 11:35 86 20 144/78 94 Room Air 02/26/17 11:07 94 02/26/17 11:00 93 Nasal Cannula 2.0 02/26/17 11:00 90 Room Air 02/26/17 11:00 90 Room Air 02/26/17 10:49 36.6 94 20 120/77 91 Room Air Physical Exam GENERAL: sitting up in bed, disheveled, no acute distress EYE EXAM: normal conjunctiva OROPHARYNX: no exudate, no erythema, lips, buccal mucosa, and tongue normal and mucous membranes are moist NECK: supple, no nuchal rigidity, no adenopathy, non-tender LUNGS: Rhonchi at both bases bilaterally. HEART: no murmurs, S1 normal and S2 normal ABDOMEN: abdomen soft, non-tender, normo-active bowel sounds, no masses, no rebound or guarding. BACK: Back is symmetrical on inspection and there is no deformity, no midline tenderness, no CVA tenderness. SKIN: no rashes and no bruising UPPER EXTREMITIES: upper extremities are grossly normal. LOWER EXTREMITIES: Right leg with incision which is clean dry and intact over right knee. Right calf is slightly larger than left. NEURO EXAM: Normal sensorium. Medical Decision & Procedures ER Provider Diagnostic Interpretation: Radiology results as stated below per my review and the radiologist's interpretation: CHEST ONE VIEW PORTABLE CLINICAL HISTORY: Shortness of breath. COMPARISON STUDY: Chest radiograph January 23, 2017. FINDINGS: Lung volumes are normal. There is no consolidation or evidence of pulmonary edema. Mild left basilar opacity favors atelectasis. Moderate cardiomegaly is unchanged. There is no evidence of pulmonary edema. IMPRESSION: No acute cardiopulmonary findings. Electronically signed by: Hector Varela M.D. 02/26/2017 11:41 AM Dictated Date/Time: 02/26/2017 11:[address] ANGIOGRAPHY OF THE CHEST, PULMONARY EMBOLUS PROTOCOL CLINICAL HISTORY: Recent knee surgery. Chest pain and increasing shortness of breath. COMPARISON STUDY: Chest radiograph January 23, 2017. TECHNIQUE: Following IV administration of 93 mL of Optiray-320, helical axial images of the chest were obtained utilizing the pulmonary embolus protocol. Maximal intensity projections and sagittal and coronal reformats were viewed on an independent 3D workstation. IV contrast was administered without complication. CT DOSE: 450.45 mGy.cm FINDINGS: There are extensive pulmonary emboli throughout the lobar and segmental branches of both lungs. There is no saddle pulmonary embolus. The heart is moderately enlarged. There is mild straightening of the interventricular septum. There is no pericardial effusion. Central airways are patent. There is no pneumothorax. Subpleural groundglass opacities are noted. The appearance favors atelectasis although a small infarct would be difficult to exclude on this exam. A 3 mm left upper lobe subpleural nodule is likely benign. Bony thorax is unremarkable. There is suspected fatty infiltration of the liver. IMPRESSION: 1. Extensive bilateral pulmonary emboli with mild straightening of the interventricular septum which raises the possibility of right heart strain. Discussed with Dr. Morton at time of dictation. 2. Subpleural opacities which favor atelectasis. A small left lower lobe pulmonary infarct could be difficult to exclude. 3. Moderate cardiomegaly. Electronically signed by: Hector Varela M.D. 02/26/2017 12:26 PM Dictated Date/Time: 02/26/2017 12:19 PM Laboratory Results 02/26/17 11:00 Red Blood Count 4.03, Mean Corpuscular Volume 93.8, Mean Corpuscular Hemoglobin 31.8, Mean Corpuscular Hemoglobin Concent 33.9, Mean Platelet Volume 9.2, Neutrophils (%) (Auto) 81.9, Lymphocytes (%) (Auto) 11.9, Monocytes (%) (Auto) 5.2, Eosinophils (%) (Auto) 0.6, Basophils (%) (Auto) 0.3, Neutrophils # (Auto) 9.78, Lymphocytes # (Auto) 1.42, Monocytes # (Auto) 0.62, Eosinophils # (Auto) 0.07, Basophils # (Auto) 0.03 02/26/17 11:00 Test 02/26/17 11:00 02/26/17 11:05 02/26/17 13:13 White Blood Count 11.93 K/uL (4.8-10.8) Red Blood Count 4.03 M/uL (4.2-5.4) Hemoglobin 12.8 g/dL (12.0-16.0) Hematocrit 37.8 % (37-47) Mean Corpuscular Volume 93.8 fL (80-100) Mean Corpuscular Hemoglobin 31.8 pg (25-34) Mean Corpuscular Hemoglobin Concent 33.9 g/dl (32-36) Platelet Count 317 K/uL (130-400) Mean Platelet Volume 9.2 fL (7.4-10.4) Neutrophils (%) (Auto) 81.9 % Lymphocytes (%) (Auto) 11.9 % Monocytes (%) (Auto) 5.2 % Eosinophils (%) (Auto) 0.6 % Basophils (%) (Auto) 0.3 % Neutrophils # (Auto) 9.78 K/uL (1.4-6.5) Lymphocytes # (Auto) 1.42 K/uL (1.2-3.4) Monocytes # (Auto) 0.62 K/uL (0.11-0.59) Eosinophils # (Auto) 0.07 K/uL (0-0.5) Basophils # (Auto) 0.03 K/uL (0-0.2) RDW Standard Deviation 49.7 fL (36.4-46.3) RDW Coefficient of Variation 14.6 % (11.5-14.5) Immature Granulocyte % (Auto) 0.1 % Immature Granulocyte # (Auto) 0.01 K/uL (0.00-0.02) Prothrombin Time 12.2 SECONDS (9.0-12.0) Prothromb Time International Ratio 1.1 (0.9-1.1) D-Dimer > 19216 ug/L FEU (0-500) Anion Gap 10.0 mmol/L (3-11) Estimated GFR () 85.2 Estimated GFR (Non- 73.5 BUN/Creatinine Ratio 16.6 (10-20) Calcium Level 9.6 mg/dl (8.5-10.1) Total Bilirubin 1.3 mg/dl (0.2-1) Direct Bilirubin 0.2 mg/dl (0-0.2) Aspartate Amino Transf (AST/SGOT) 12 U/L (15-37) Alanine Aminotransferase (ALT/SGPT) 16 U/L (12-78) Alkaline Phosphatase 79 U/L (45-117) Troponin I 1.670 ng/ml (0-0.045) Total Protein 8.0 gm/dl (6.4-8.2) Albumin 3.7 gm/dl (3.4-5.0) Lipase 83 U/L (73-393) Activated Partial Thromboplast Time 28.9 SECONDS (21.0-31.0) Partial Thromboplastin Ratio 1.1 Laboratory results per my review. Medications Administered Medications (Trade) Dose Ordered Sig/Roderick Route Start Time Stop Time Status Last Admin Dose Admin Sodium Chloride (Nss 1000ml) 1,000 ml @ 999 mls/hr Q1H1M STAT IV 02/26/17 11:10 02/26/17 12:10 DC 02/26/17 11:20 999 MLS/HR Heparin Sodium (Porcine) (Heparin Sq 5000 Unit/0.5ml) 10,000 unit STK-MED ONCE .ROUTE 02/26/17 12:44 02/26/17 12:45 DC 02/26/17 12:53 6,000 UNIT Heparin Sodium/ Dextrose 22912 unit 25,000 unit STK-MED ONCE .ROUTE 02/26/17 12:45 02/26/17 12:46 DC 02/26/17 12:54 25,000 UNIT Sodium Chloride (Nss 1000ml) 1,000 ml @ 80 mls/hr [id number] IV 02/26/17 13:45 03/28/17 13:44 02/26/17 14:05 80 MLS/HR Pantoprazole Sodium (Protonix Tab) 40 mg NOW STAT PO 02/26/17 13:33 02/26/17 13:38 DC 02/26/17 14:04 40 MG ECG Indication: SOB/dyspnea Rate (beats per minute): 89 Rhythm: sinus rhythm Findings: T-wave inversion (Inferior), other (normal axis, r r' in V1) Comparison ECG Date: compared to January 23 2017, flipped T-wave is old ED Course ED COURSE: Vital signs were reviewed and showed hypoxic vitals. The patients medical record was reviewed The above diagnostic studies were performed and reviewed. ED treatments and interventions as stated above. 1100: The patient was evaluated in room C8. A complete history and physical examination was performed. 1110: Ordered Zofran Inj 4 mg IV, NSS 1000 ml @ 999 mls/hr IV. 1225: Upon reevaluation, the patient is resting comfortably, and denies any history of brain bleeds, recent trauma, recent surgery (with the exception of her knee), or blood in her stool or urine. Her bedside US showed non- compressible femoral veins. I discussed my findings with the patient and she understands and agrees with the treatment plan. Based on the patients age, coexisting illnesses, exam and lab findings the decision to treat as an inpatient was made. The patient remained stable while under my care. The patient will be evaluated for further management. 1227: Ordered Heparin Sodium/Dextrose 1 ea N/A. 1246: I discussed the patient with Dr. Lyla MAZA hospitalist - he will evaluate the patient for further treatment. Medical Decision Differential diagnoses includes but is not limited to pneumonia, bronchitis, COPD/Asthma exacerbation, pneumothorax, pulmonary embolism, congestive heart failure, acute coronary syndrome Patient is a 66-year-old female who presents the ER with chest pain shortness of breath for the past 3 days following a knee replacement 2 weeks ago. On exam she is hypoxic. Bedside ultrasound does confirm lower extremity DVT. CT PE was performed shows bilateral PEs. Patient was updated regards to her findings. She has no risk factors for intracranial bleed, no recent head trauma , no previous bleeds, no blood in her stool, she is not urinating and blood and no recent surgeries with exception of her right knee. Patient was given a heparin bolus and heparin drip. She is monitored closely and remained on nasal cannula 2 L and she was hypoxic initially in the mid 80s. She was admitted to internal medicine with bilateral PEs. Consults Time Called: 1225 Consulting Physician: Dr. Lyla MAZA hospitalist Returned Call: [phone] I discussed the patient with Dr. Lyla MAZA hospitalist - he will evaluate the patient for further treatment. Impression Primary Impression: Bilateral pulmonary embolism Additional Impressions: Right heart strain Elevated troponin Critical Care I have personally spent 75 minutes of critical care time in the direct management of this patient. This includes bedside care, interpretation of diagnostic studies, and testing, discussion with consultants, patient, and family members, and other required patient management activities. This 75 minutes is in excess of all separately billable procedures. Scribe Attestation The scribe's documentation has been prepared under my direction and personally reviewed by me in its entirety. I confirm that the note above accurately reflects all work, treatment, procedures, and medical decision making performed by me. Departure Information Dispostion Being Evaluated By Hospitalist Referrals Steven Acosta M.D. (PCP) Patient Instructions My [facility] Problem Qualifiers
[2017-02-26 15:52] VITALS: Ht 165.1 cm; Wt 100.0 kg
[2017-02-26 16:00] VITALS: O2SAT 95
[2017-02-26 16:23] VITALS: BP 151/87; PULSE 87; TEMP 37; O2SAT 92
--- NOTE | 2017-02-26 17:45 | ECHOCARDIOGRAM REPORT ---
*NOTICE TO RECEIVING DEMOCRAT AGENCY This information is strictly Confidential and protected under [place] law. [place] law prohibits you from making any further disclosure of this information unless further disclosure is expressly permitted by the written consent of the person to whom it pertains or is authorized by law. A general authorization for the release of medical or other information is not sufficient for this purpose. Hospital accepts no responsibility if the information is made available to any other person, INCLUDING THE PATIENT. Interpretation Summary * Name: GERRY OVERTON Study Date: 02/26/2017 01:58 PM BP: 141/77 mmHg * Patient Location: [facility] HR: 84 * : 1950 (M/d/yyyy) Gender: Female Height: 65 in * Age: 66 yrs Ethnicity: [place] Weight: 243 lb * Ordering Physician: Soren Arita * Referring Physician: Self, Referred * Performed By: Phan Mcginnis RDCS * * Reason For Study: ACUTE PE, RIGHT HEART STRAIN * BSA: 2.1 m2 * -- Conclusions -- * There is mild concentric left ventricular hypertrophy. * Left ventricular systolic function is normal. * Grade I diastolic dysfunction, (abnormal relaxation pattern). * The right ventricular systolic function is normal as assessed by tricuspid annular plane systolic excursion (TAPSE) (normal >1.5 cm). * Right ventricular systolic pressure is elevated at 30-40mmHg. * Compared to an echocardiogram performed on 01/25/2017, there is no difference Procedure Details * A complete two-dimensional transthoracic echocardiogram was performed (2D, M-mode, Doppler and color flow Doppler). Left Ventricle * The left ventricle is normal in size. * There is mild concentric left ventricular hypertrophy. * Ejection Fraction = 65-70%. * Left ventricular systolic function is normal. * Grade I diastolic dysfunction, (abnormal relaxation pattern). * The left ventricular wall motion is normal. Right Ventricle * The right ventricle is normal in size and function. * The right ventricular systolic function is normal as assessed by tricuspid annular plane systolic excursion (TAPSE) (normal >1.5 cm). Atria * The left atrial size is normal. * Right atrial size is normal. Mitral Valve * The mitral valve is grossly normal. * Significant mitral regurgitation is absent. Tricuspid Valve * The tricuspid valve is not well visualized, but is grossly normal. * There is mild tricuspid regurgitation. * Right ventricular systolic pressure is elevated at 30-40mmHg. Aortic Valve * Aortic valve sclerosis mild, without significant aortic valvular stenosis. * No hemodynamically significant valvular aortic stenosis. * There is no significant aortic regurgitation. Great Vessels * The aortic root is normal size. Pericardium/Pleural * There is no pericardial effusion. Great Vessels * Normal inferior vena cava diameter and respiratory variation suggests normal central venous pressure. MMode 2D Measurements and Calculations IVSd 1.4 cm IVSs 1.7 cm LVIDd 3.8 cm LVIDs 2.4 cm LVPWd 1.3 cm LVPWs 1.9 cm IVS/LVPW 1.1 FS 36.7 % EDV(Teich) 63.2 ml ESV(Teich) 20.7 ml EF(Teich) 67.3 % EDV(cubed) 56.2 ml ESV(cubed) 14.3 ml EF(cubed) 74.7 % % IVS thick 22.7 % % LVPW thick 48.5 % LV mass(C)d 181.2 grams LV mass(C)dI 84.3 grams/m\S\2 LV mass(C)s 169.5 grams LV mass(C)sI 78.9 grams/m\S\2 SV(Teich) 42.5 ml SI(Teich) 19.8 ml/m\S\2 SV(cubed) 42.0 ml SI(cubed) 19.5 ml/m\S\2 Ao root diam 2.9 cm Ao root area 6.7 cm\S\2 LA dimension 3.5 cm LA/Ao 1.2 LVAd ap4 19.3 cm\S\2 LVLd ap4 7.3 cm EDV(MOD-sp4) 42.0 ml LVAs ap4 9.6 cm\S\2 LVLs ap4 6.4 cm ESV(MOD-sp4) 13.0 ml EF(MOD-sp4) 69.0 % LVAd ap2 18.3 cm\S\2 LVLd ap2 7.5 cm EDV(MOD-sp2) 38.0 ml LVAs ap2 8.0 cm\S\2 LVLs ap2 5.6 cm ESV(MOD-sp2) 11.0 ml EF(MOD-sp2) 71.1 % SV(MOD-sp4) 29.0 ml SI(MOD-sp4) 13.5 ml/m\S\2 SV(MOD-sp2) 27.0 ml SI(MOD-sp2) 12.6 ml/m\S\2 Doppler Measurements and Calculations MV E max simon 61.4 cm/sec MV A max simon 97.6 cm/sec MV E/A 0.63 MV dec time 0.13 sec Ao V2 max 168.3 cm/sec Ao max PG 11.3 mmHg Ao max PG (full) 7.9 mmHg LV V1 max PG 3.4 mmHg LV V1 max 92.6 cm/sec TR max simon 261.2 cm/sec
--- NOTE | 2017-02-26 18:01 | DIAGNOSTIC IMAGING REPORT ---
BILATERAL LOWER EXTREMITY VENOUS DOPPLER HISTORY: acute PE with right heart strain, need to rule out dvt COMPARISON STUDY: None. FINDINGS: There is normal compressibility, flow, and augmentation within the bilateral lower extremity deep venous systems. IMPRESSION: No DVT within the right or left lower extremity. Electronically signed by: Artemio Delacruz M.D. 02/26/2017 5:59 PM Dictated Date/Time: 02/26/2017 5:59 PM
[2017-02-26] MEDS ORDERED: NURSING VERBAL MED ORDER ONE (18:30)
[2017-02-26 19:32] LABS: PARTIAL THROMBOPLASTIN RATIO 1.8
--- NOTE | 2017-02-26 19:47 | Medical Consult ---
Consultation Note Date of Service February 26, 2017. Consultation Note Requesting physician: Soren Arita Reason for consultation: Bilateral pulmonary emboli Patient is a 66-year-old female who underwent a right total knee revision of a partial knee secondary to arthritis on 02/10/2017. She does not have any significant past medical history of pulmonary emboli nor DVT. I reviewed the CT scan findings as well as the radiology report of bilateral lobar and segmental pulmonary emboli. There is no evidence of saddle embolus. I reviewed the patient's labs which revealed no elevated troponin I. The patient' s pulmonary embolism severity index score is 68 points, she is hemodynamically stable, her blood pressure is not less than 100 mmHg, she is not tachycardic, she does not have tachypnea, and her oxygen saturations are not less than 90%. Given the recent surgery she is not a candidate for systemic lysis, based on the location of her pulmonary emboli she is not an optimal candidate for catheter directed TPA. I discussed this with Dr. Arita recommended systemic anticoagulation. If the patient were to progress to saddle embolism I would consider thrombolysis in the setting of hypotension (less than 100 mmHg) or severe hypoxemia. My recommendation at that time would be to use 50 mg of TPA 10 mg bolus over 2 minutes and run the rest over 30 minutes.
[2017-02-26 19:50] LABS: CKMB/CK RATIO 4.3 (0-3.0)
[2017-02-26] MEDS: MoRPHine SULFATE 4 MG/ML 1 ML CARP\\VIAL IV PRN (19:54)
[2017-02-26 20:28] VITALS: BP 147/75; PULSE 81; TEMP 36.5; O2SAT 96
[2017-02-27] VITALS (7 sets, daily range): BP systolic 123–174; BP diastolic 66–86; PULSE 73–80; TEMP 36.7–37.1; O2SAT 93–96
[2017-02-27 03:38] LABS: HEMATOCRIT 32.2 % (37-47); MEAN CORPUSCULAR HEMOGLOBIN 31.3 pg (25-34); MEAN CORPUSCULAR HGB CONC 32.9 g/dl (32-36); MEAN PLATELET VOLUME 9.1 fL (7.4-10.4); PLATELET COUNT 270 K/uL (130-400); RED BLOOD COUNT 3.39 M/uL (4.2-5.4); WHITE BLOOD COUNT 8.76 K/uL (4.8-10.8)
[2017-02-27 03:59] LABS: CKMB/CK RATIO 3.7 (0-3.0)
[2017-02-27 04:00] LABS: PARTIAL THROMBOPLASTIN RATIO 1.9
[2017-02-27] MEDS: LOSARTAN POTASSIUM 25 MG TAB PO SCH (08:08)
[2017-02-27] MEDS: PANTOprazole SOD 40 MG TAB PO SCH (08:08)
[2017-02-27] MEDS: SERTRALINE HCL 50 MG TAB PO SCH (08:08)
--- NOTE | 2017-02-27 08:20 | PROGRESS NOTE ---
DATE: 02/27/2017 SUBJECTIVE: A 66-year-old white female status post right total knee replacement done 02/10/2017, now 2-1/2 weeks postop, admitted initially with pretty significant PEs. She states her shortness of breath started on Monday. She had trouble sleeping Monday night and was worse yesterday morning. She came to the Emergency Room and was admitted. She has been on heparin. She is doing better. Feeling much better. Denies any injuries. OBJECTIVE: VITAL SIGNS: Temperature is 37.0. Vital signs stable. PHYSICAL EXAMINATION: GENERAL: Shows a pleasant elderly female. She is lying in bed. She looks pretty comfortable. She is eating breakfast. EXTREMITIES: Examination of the right leg reveals incision to be healed nicely. Swelling is pretty mild. She can do a straight leg raise. Range of motion is 0-90 degrees. LABORATORY DATA: White cell count 8.75. Hemoglobin 10.6. Hematocrit 32.2. Her PTT is 48.1. ASSESSMENT: A 66-year-old female, now 2-1/2 weeks out from revision total knee of a partial to full knee replacement with acute pulmonary embolism. Interestingly, the ultrasounds of her legs are negative. PLAN: She has been admitted to the PCU. We are going to start some therapy on her knee. She is undergoing anticoagulation, she will need that probably for 3-6 months. We will continue to follow her from the orthopedic standpoint. Any orthopedic questions can be directed to me at [phone].
--- NOTE | 2017-02-27 13:39 | Progress Note ---
Subjective Date of Service: February 27, 2017. Subjective this pt is doing well is agreeable to start NOAC, will choose xarelto unless insurance prohibitive. She has much less SOB and no chest pain Problem List Medical Problems: (1) Bilateral pulmonary embolism Status: Acute (2) Elevated troponin Status: Acute Review of Systems Constitutional: No chills, No fever Respiratory: No cough, No shortness of breath Cardiac: No chest pain, No edema Abdomen: No diarrhea, No nausea, No pain, No vomiting Neurologic: No memory loss, No paralysis Objective Vital Signs Date Time Temp Pulse Resp B/P Pulse Ox O2 Delivery O2 Flow Rate FiO2 02/27/17 07:57 36.9 78 19 124/71 93 Nasal Cannula 1.0 02/27/17 04:51 37.0 74 18 123/69 93 Nasal Cannula 2.0 02/27/17 04:00 Nasal Cannula 02/27/17 00:17 37.1 80 19 142/73 94 Room Air 02/27/17 00:01 Nasal Cannula 02/26/17 20:28 36.5 81 22 147/75 96 Nasal Cannula 2.0 02/26/17 20:00 Nasal Cannula 02/26/17 16:23 37.0 87 18 151/87 92 2.0 02/26/17 16:00 95 Nasal Cannula 2.0 02/26/17 15:52 Room Air 02/26/17 14:44 85 22 134/85 95 02/26/17 13:33 84 20 141/77 94 Nasal Cannula 2.0 02/26/17 12:11 85 20 127/78 94 Nasal Cannula 2.0 02/26/17 11:35 86 20 144/78 94 Room Air 02/26/17 11:07 94 02/26/17 11:00 93 Nasal Cannula 2.0 02/26/17 11:00 90 Room Air 02/26/17 11:00 90 Room Air 02/26/17 10:49 36.6 94 20 120/77 91 Room Air Physical Exam General Appearance: WD/WN, + mild distress Neck: supple, no JVD Respiratory/Chest: chest non-tender, lungs clear, normal breath sounds Cardiovascular: regular rate, rhythm, no murmur Abdomen: normal bowel sounds, non tender, soft Extremities: no pedal edema, no calf tenderness Neurologic/Psychiatric: alert, oriented x 3 Laboratory Results Last 24 Hours Test 02/26/17 11:00 02/26/17 11:05 02/26/17 15:26 02/26/17 19:07 White Blood Count 11.93 K/uL Red Blood Count 4.03 M/uL Hemoglobin 12.8 g/dL Hematocrit 37.8 % Mean Corpuscular Volume 93.8 fL Mean Corpuscular Hemoglobin 31.8 pg Mean Corpuscular Hemoglobin Concent 33.9 g/dl Platelet Count 317 K/uL Mean Platelet Volume 9.2 fL Neutrophils (%) (Auto) 81.9 % Lymphocytes (%) (Auto) 11.9 % Monocytes (%) (Auto) 5.2 % Eosinophils (%) (Auto) 0.6 % Basophils (%) (Auto) 0.3 % Neutrophils # (Auto) 9.78 K/uL Lymphocytes # (Auto) 1.42 K/uL Monocytes # (Auto) 0.62 K/uL Eosinophils # (Auto) 0.07 K/uL Basophils # (Auto) 0.03 K/uL RDW Standard Deviation 49.7 fL RDW Coefficient of Variation 14.6 % Immature Granulocyte % (Auto) 0.1 % Immature Granulocyte # (Auto) 0.01 K/uL Prothrombin Time 12.2 SECONDS Prothromb Time International Ratio 1.1 D-Dimer > 65440 ug/L FEU Sodium Level 138 mmol/L Potassium Level 3.8 mmol/L Chloride Level 104 mmol/L Carbon Dioxide Level 24 mmol/L Anion Gap 10.0 mmol/L Blood Urea Nitrogen 14 mg/dl Creatinine 0.82 mg/dl Estimated GFR () 85.2 Estimated GFR (Non- 73.5 BUN/Creatinine Ratio 16.6 Random Glucose 134 mg/dl Calcium Level 9.6 mg/dl Total Bilirubin 1.3 mg/dl Direct Bilirubin 0.2 mg/dl Aspartate Amino Transf (AST/SGOT) 12 U/L Alanine Aminotransferase (ALT/SGPT) 16 U/L Alkaline Phosphatase 79 U/L Troponin I 1.670 ng/ml 2.050 ng/ml Total Protein 8.0 gm/dl Albumin 3.7 gm/dl Lipase 83 U/L Activated Partial Thromboplast Time 28.9 SECONDS 47.6 SECONDS Partial Thromboplastin Ratio 1.1 1.8 Total Creatine Kinase 72 U/L Creatine Kinase MB 3.1 ng/ml Creatine Kinase MB Ratio 4.3 Test 02/27/17 03:23 White Blood Count 8.76 K/uL Red Blood Count 3.39 M/uL Hemoglobin 10.6 g/dL Hematocrit 32.2 % Mean Corpuscular Volume 95.0 fL Mean Corpuscular Hemoglobin 31.3 pg Mean Corpuscular Hemoglobin Concent 32.9 g/dl RDW Standard Deviation 51.5 fL RDW Coefficient of Variation 14.9 % Platelet Count 270 K/uL Mean Platelet Volume 9.1 fL Activated Partial Thromboplast Time 48.1 SECONDS Partial Thromboplastin Ratio 1.9 Total Creatine Kinase 49 U/L Creatine Kinase MB 1.8 ng/ml Creatine Kinase MB Ratio 3.7 Troponin I 1.340 ng/ml Assessment and Plan 66 F s/p TKA with Acute bilateral pulmonary embolisms with right heart strain. acute PE, heparin drip did discuss NOAC and will check insurance coverage for Xarelto elevated troponin, suspect from right heart strain, follow ECG, no RWMA seen on echo HTN, depression Continue cozaar GI prophylaxis ppi
[2017-02-27] MEDS: SODIUM CHLORIDE 0.9% 1000ML 1,000 ML IV SCH (14:17)
--- NOTE | 2017-02-27 14:26 | Medical Student: [facility] ---
Med Student Progress Note Date of Service February 27, 2017. Subjective Pt evaluation today including: conversation w/ patient, physical exam, chart review, lab review, review of studies Pain: none PO Intake: full diet Voiding: no voiding problems no acute events overnight. patient reports feeling much better today. she denies any nausea today and reports that she has been eating well. she also says that she is only having difficulty breathing on exertion. she went with physical therapy this morning and was able to walk 90 feet without any desaturations. denies chest pain, abdominal pain. no other symptoms to report. Review of Systems Constitutional: No chills, No fever Eyes: No worsening of vision Respiratory: + dyspnea on exertion, No sputum, No wheezing Cardiac: No chest pain, No orthopnea Abdomen: No nausea, No pain Musculoskeletal: + joint pain (s/p knee replacement) Objective Vital Signs Date Time Temp Pulse Resp B/P Pulse Ox O2 Delivery O2 Flow Rate FiO2 02/27/17 12:00 Nasal Cannula 2.0 02/27/17 11:49 36.8 73 19 139/66 96 Nasal Cannula 1.0 02/27/17 08:00 Nasal Cannula 2.0 02/27/17 07:57 36.9 78 19 124/71 93 Nasal Cannula 1.0 02/27/17 04:51 37.0 74 18 123/69 93 Nasal Cannula 2.0 02/27/17 04:00 Nasal Cannula 02/27/17 00:17 37.1 80 19 142/73 94 Room Air 02/27/17 00:01 Nasal Cannula 02/26/17 20:28 36.5 81 22 147/75 96 Nasal Cannula 2.0 02/26/17 20:00 Nasal Cannula 02/26/17 16:23 37.0 87 18 151/87 92 2.0 02/26/17 16:00 95 Nasal Cannula 2.0 02/26/17 15:52 Room Air 02/26/17 14:44 85 22 134/85 95 Physical Exam General Appearance: no apparent distress, + obese ENT: hearing grossly normal, pharynx normal Neck: supple, no JVD Respiratory/Chest: chest non-tender, lungs clear, normal breath sounds Cardiovascular: regular rate, rhythm, no edema, no gallop, + systolic murmur ( II/ at upper sternal border) Abdomen: normal bowel sounds, non tender, soft Extremities: non-tender, no pedal edema, no calf tenderness Neurologic/Psychiatric: alert, oriented x 3 Skin: normal color, no rash Laboratory Results Last 24 Hours Test 02/26/17 15:26 02/26/17 19:07 02/27/17 03:23 Activated Partial Thromboplast Time 47.6 SECONDS 48.1 SECONDS Partial Thromboplastin Ratio 1.8 1.9 Total Creatine Kinase 72 U/L 49 U/L Creatine Kinase MB 3.1 ng/ml 1.8 ng/ml Creatine Kinase MB Ratio 4.3 3.7 Troponin I 2.050 ng/ml 1.340 ng/ml White Blood Count 8.76 K/uL Red Blood Count 3.39 M/uL Hemoglobin 10.6 g/dL Hematocrit 32.2 % Mean Corpuscular Volume 95.0 fL Mean Corpuscular Hemoglobin 31.3 pg Mean Corpuscular Hemoglobin Concent 32.9 g/dl RDW Standard Deviation 51.5 fL RDW Coefficient of Variation 14.9 % Platelet Count 270 K/uL Mean Platelet Volume 9.1 fL Medications Current Inpatient Medications Medications (Trade) Dose Ordered Sig/Roderick Route Start Time Stop Time Status Last Admin Dose Admin Ioversol (Optiray 320) 125 ml UD PRN IV 02/26/17 12:15 03/02/17 12:14 Acetaminophen (Tylenol Tab) 650 mg Q4H PRN PO 02/26/17 13:15 03/28/17 13:14 Al Hydrox/Mg Hydrox/Simethicone (Maalox Max Susp) 15 ml Q4H PRN PO 02/26/17 13:15 03/28/17 13:14 Magnesium Hydroxide (Milk Of Magnesia Susp) 30 ml Q12H PRN PO 02/26/17 13:15 03/28/17 13:14 Zolpidem Tartrate (Ambien Tab) 5 mg HSZ PRN PO 02/26/17 13:15 03/28/17 13:14 Ondansetron HCl (Zofran Inj) 4 mg Q6H PRN IV 02/26/17 13:15 03/28/17 13:14 Polyethylene (Miralax Powder Packet) 17 gm DAILY PRN PO 02/26/17 13:15 03/28/17 13:14 Losartan Potassium (coZAAR TAB) 25 mg QAM PO 02/27/17 09:00 03/29/17 08:59 02/27/17 08:08 25 MG Oxycodone HCl (Roxicodone Immediate Rel Tab) 5 mg Q4H PRN PO 02/26/17 13:30 03/12/17 13:29 Sertraline HCl 25 mg 25 mg QAM PO 02/27/17 09:00 03/29/17 08:59 02/27/17 08:08 25 MG Heparin Sodium/ Dextrose 500 ml @ 28 mls/hr [id number] PRN IV 02/26/17 13:30 02/27/17 16:45 02/27/17 04:16 28 MLS/HR Sodium Chloride (Nss 1000ml) 1,000 ml @ 80 mls/hr [id number] IV 02/26/17 13:45 03/28/17 13:44 02/26/17 15:47 80 MLS/HR Pantoprazole Sodium (Protonix Tab) 40 mg QAM PO 02/27/17 09:00 03/29/17 08:59 02/27/17 08:08 40 MG Morphine Sulfate (MoRPHine SULFATE INJ) 4 mg Q4H PRN IV 02/26/17 19:15 03/12/17 19:14 02/26/17 19:54 4 MG Rivaroxaban (Xarelto Tab) 15 mg BIDM PO 02/27/17 16:45 03/20/17 16:44 Miscellaneous (Stop Order) 1 ea ONE ONCE N/A 02/27/17 16:45 02/27/17 16:46 Assessment and Plan Assessment and Plan: This is a 66 year old female who presented with difficulty breathing and malaise of three days duration and was found to have bilateral pulmonary embolism on CTA. 1. Pulmonary embolism: -Improving clinically -Will continue IV heparin while in hospital -Trops trending down, likely due to right heart strain from PE -PTT at 48.1, being followed by nursing and pharmacy per protocol -Pending insurance approval, will begin rivaroxaban 15 mg po bid for 3 weeks followed by 20 mg po daily for at 3-6 months. -May wean oxygen closer to discharge 2. Hypertension -Continue losartan 25 mg po daily 3. Depression/Anxiety: -Continue sertraline 25 mg 4. S/p Right Total Knee Arthroscopy: -Pain control as needed with tylenol and hydrocodone -PT/OT working with patient. Recs appreciated. -F/u with ortho on discharge 5. DVT prophylaxis: -Receiving heparin and rivaroxaban 6. Disposition: -Will monitor overnight, but pending acute events will plan on discharge tomorrow. Continued [facility] stay due to: other Discharge planning: home
[2017-02-27] MEDS: RIVAROXABAN TAB 15 MG TAB PO SCH (16:25)
[2017-02-27] MEDS: MoRPHine SULFATE 4 MG/ML 1 ML CARP\\VIAL IV PRN (23:20)
[2017-02-28 00:12] VITALS: BP 156/77; PULSE 73; TEMP 36.8; O2SAT 96
[2017-02-28] MEDS: SODIUM CHLORIDE 0.9% 1000ML 1,000 ML IV SCH (03:15)
[2017-02-28 04:02] VITALS: BP 154/69; PULSE 67; TEMP 37.1; O2SAT 96
[2017-02-28 06:24] LABS: HEMATOCRIT 29.9 % (37-47); MEAN CELL VOLUME 95.5 fL (80-100); MEAN CORPUSCULAR HEMOGLOBIN 31.9 pg (25-34); MEAN CORPUSCULAR HGB CONC 33.4 g/dl (32-36); MEAN PLATELET VOLUME 9.1 fL (7.4-10.4); PLATELET COUNT 263 K/uL (130-400); RED BLOOD COUNT 3.13 M/uL (4.2-5.4); WHITE BLOOD COUNT 7.13 K/uL (4.8-10.8)
[2017-02-28 06:39] LABS: PARTIAL THROMBOPLASTIN RATIO 1.2
[2017-02-28] MEDS ORDERED: PRT40 PO (07:43)
[2017-02-28] MEDS ORDERED: XARELTO PO (07:43)
[2017-02-28] MEDS ORDERED: XRL15 PO (07:43)
--- NOTE | 2017-02-28 07:44 | Discharge Instructions ---
Discharge Instructions Date of Service February 28, 2017. Admission Reason for Admission: Acute Pe W/Rt Heart Strain VTE Date & Time Date of VTE Diagnosis: February 28, 2017 Time of VTE Diagnosis: 10:45 Discharge Goals Goal(s): Diagnostic testing, Therapeutic intervention Activity Recommendations Activity Limitations: resume your previous activity . Instructions / Follow-Up Instructions / Follow-Up Medication Instructions: Your condition is typically treated with an anticoagulant. Anticoagulants will thin your blood to help prevent new clots. * You should take her medication exactly as directed. * Never skip a dose. * Never take a double dose. If you miss a dose, take it as soon as you remember. Call your Primary Care doctor if you experience any of the following: * Swelling or Pain in your leg * Sudden, continuous pain deep in a muscle * Pain that worsens when you are active or when you stand still for a long time * Chest Pain * Sudden Shortness of Breath * Rapid or pounding heart beat * Fainting * Dizziness * Cough with blood or bloody sputum * Sweating more than normal * Bruises * Heavy or uncontrolled bleeding * Blood in your urine, stool or vomit * Black or tarry stools Caring for Your Self at Home: * Avoid sitting, standing or lying down for long periods without moving your legs and feet * When traveling by car, stop to get out and move around at least once every 3 hours * On long airplane, train or bus rides, get up and move around when possible * If you can't get up, wiggle your toes and tighten your calves to keep your blood moving Follow Up: It is important for you to keep your follow up appointments with your medical provider. Current Hospital Diet Patient's current hospital diet: AHA Diet (Heart Healthy) Discharge Diet Recommended Diet: Regular Diet Pending Studies Studies pending at discharge: no Medical Emergencies . Who to Call and When: Medical Emergencies: If at any time you feel your situation is an emergency, please call 911 immediately. . Non-Emergent Contact Non-Emergency issues call your: Primary Care Provider Call Non-Emergent contact if: temperature is above 101, your pain is unusual for you . . "Provider Documentation" section prepared by Alvarado Lagos. . VTE Core Measure Inpt VTE Proph given/why not?: Unfractionated heparin SQ, Other Anticoagulation
[2017-02-28 08:00] VITALS: O2SAT 92
[2017-02-28 08:01] VITALS: BP 125/72; PULSE 74; TEMP 36.4; O2SAT 96
[2017-02-28] MEDS: PANTOprazole SOD 40 MG TAB PO SCH (09:05)
[2017-02-28] MEDS: LOSARTAN POTASSIUM 25 MG TAB PO SCH (09:05)
[2017-02-28] MEDS: SERTRALINE HCL 50 MG TAB PO SCH (09:05)
[2017-02-28] MEDS: RIVAROXABAN TAB 15 MG TAB PO SCH (09:05)
--- NOTE | 2017-02-28 10:53 | PROGRESS NOTE ---
DATE: 02/28/2017 SUBJECTIVE: 66-year-old female 2 1/2 weeks out from right knee revision of a partial to full knee replacement, admitted with an acute PE. She is doing well. She does not have any subjective chest pain or shortness of breath. The knee was pretty sore after therapy yesterday but doing well this morning. OBJECTIVE: VITAL SIGNS: Temperature is 36.4. Vital signs stable. PHYSICAL EXAMINATION: GENERAL: Shows a pleasant, middle-aged female. She is sitting up in bed and looks pretty comfortable. EXTREMITIES: Examination of the right knee reveals incision to be healed nicely. Really not much swelling. She can do a straight leg raise. Range of motion is 0 to about 80 degrees with some pain. She is neurologically intact. ASSESSMENT: 66-year-old female 2 1/2 weeks out from a right revision up partial to full knee replacement with a pulmonary embolism. She is now on anticoagulation and now been placed on Xarelto. Symptoms seem to be much improved. PLAN: 1. DVT prophylaxis including thigh-high TEDS, SCDs, and now on his Xarelto. 2. PT/OT. She can continue progressive therapy as per the total knee protocol. 3. Medical management as per the medicine service. 4. Disposition: From the orthopedic standpoint, obviously she can be discharged at any time medically stable. Any orthopedic questions can be directed to me at [phone]. I will be seeing her back in about a month and her appointment is already scheduled.
[2017-02-28 11:32] VITALS: BP 145/82; PULSE 70; TEMP 36.3; O2SAT 95
[2017-02-28 12:28] VITALS: BP 145/82; PULSE 70; TEMP 36.3; O2SAT 95
--- NOTE | 2017-02-28 16:47 | Discharge Summary ---
Discharge Summary Date of Service February 28, 2017. Discharge Summary Admission Date: February 26, 2017 at 13:22 Discharge Date: February 28, 2017 Discharge Disposition: Home Principal Diagnosis: pulmonary embolism Immunizations: Have You Had Influenza Vaccine: No History of Tetanus Vaccine?: Yes History of Pneumococcal: No History of Hepatitis B Vaccine: No Medication Reconciliation New Medications: [Xarelto] () 20 MG PO DAILY, #30 DOSE 5 Refills Pantoprazole (Pantoprazole Sodium) 40 Mg Tab 40 MG PO QAM, #60 TAB 6 Refills Rivaroxaban (Xarelto) 15 Mg Tab 15 MG PO BIDM, #40 TAB THEN USE NEW RX FOR 20 MG DAILY Continued Medications: Acetaminophen (Tylenol Extra Strength) 500 Mg Tab 1000 MG PO Q8H for 30 Days, #180 TAB Take 3 times per day to lessen pain. Aspirin (Aspirin) 325 Mg Ectab 325 MG PO BID for 45 Days, #90 Take to prevent blood clots. Losartan Potassium (Cozaar) 25 Mg Tab 25 MG PO QAM, TAB Oxycodone HCl (Oxycodone HCl) 5 Mg Tab 5 MG PO Q4H PRN for Pain for 30 Days, #60 TAB Take as needed for Pain. Sertraline (Zoloft) 25 Mg Tab 25 MG PO QAM, TAB Discontinued Medications: Naproxen (Aleve) 220 Mg Tab 440 MG PO HS, TAB Discharge Exam Review of Systems: Constitutional: No chills, No fever Respiratory: No cough, No sputum Cardiovascular: No chest pain, No orthopnea Abdomen: No nausea, No pain, No vomiting Musculoskeletal: + joint pain, + muscle pain Genitourinary - Female: No dysuria, No urinary frequency Neurologic: + weakness, No memory loss, No paralysis Physical Exam: General Appearance: WD/WN, + mild distress Neck: supple, no JVD Respiratory/Chest: chest non-tender, lungs clear, normal breath sounds Cardiovascular: regular rate, rhythm, no murmur Abdomen / GI: normal bowel sounds, non tender, soft Extremities: normal range of motion, + pedal edema (trace) Neurologic/Psychiatric: alert, oriented x 3 Hospital Course 66 F s/p TKA with Acute bilateral pulmonary embolisms with elevated troponin from right heart strain. acute PE, Xarelto 1 mg bid x 21 days and then 20 mg a day, will discuss with pcp duration of treatment which may be influenced by serology for hypercoagulability, that is pending at discharge elevated troponin, suspect from right heart strain, follow ECG, no RWMA seen on echo HTN, depression Continue cozaar follow with Dr Andrade for routing post op knee care and PT Total Time Spent: Greater than 30 minutes This includes examination of the patient, discharge planning, medication reconciliation, and communication with other providers. Discharge Instructions Please refer to the electronic Patient Visit Report (Discharge Instructions) for additional information.
--- NOTE | 2017-03-02 11:11 | EDITING REQUIRED CODING QUERY ---
CODING QUERY Complication of Surgery Dear Dr. Arita, To promote full compliance with coding requirements relating to patient care, provider participation is requested in all cases of extrusion press supervisor uncertainty. Please assist us with the question(s) below: In responding to this query, please exercise your independent professional judgement. The fact that a question is asked does not imply that any particular answer is desired or expected. We appreciate your clarification on this issue. Physician's Response(s): Coding Question(s): Complication from Surgery - Right Total Knee Replacement ( ) Complication of Total Knee Replacement ( x ) Not a Complication of Total Knee Replacement ( ) Other: Please explain ( ) Unable to determine Medical documentation from Discharge Summary: 66 F s/p TKA with Acute bilateral pulmonary embolisms with elevated troponin from right heart strain. acute PE, Xarelto 1 mg bid x 21 days and then 20 mg a day, will discuss with pcp duration of treatment which may be influenced by serology for hypercoagulability, that is pending at discharge Thank you for your time. Michelle Taylor, [facility] Principal Diagnosis: "_that condition established after study, to be chiefly responsible for occasioning the admission of the patient to the hospital for care." Co-Existing Principal Diagnosis: "_when two or more diagnoses equally meet the criteria for principal diagnosis as determined by the circumstances of admission, diagnostic work up, and/or therapy provided, and the Alphabetic Index, Tabular List, or another coding guideline does not provide sequencing direction, any one of the diagnoses may be sequenced first." "When the physician has documented what appears to be a current diagnosis in the body of the record, but has not included the diagnosis in the final diagnostic statement, the physician should be asked whether the diagnosis should be added." ([facility] 2 QTR90. p3-4)
[2017-03-02 17:32] LABS: ANTITHROMBINIII ACTIVITY** 85 % activity (80-120); B2 GLYCOPROTEIN IGA <9 SAU (<=20); B2 GLYCOPROTEIN IGG <9 SGU (<=20); B2 GLYCOPROTEIN IGM <9 SMU (<=20); LUPUS ANTICOAGULANT** TC36573X Positive (Negative); PROTEIN C ACTIVITY** TC 1777X 125 % (70-180); PROTEIN S ACT(FUNCT)**1779X 89 % (60-140)
== END 2017-02-28 12:46 | disposition home health service (06) | DRG 176 ==
LOC: ENRESERVTM → ENRESERVDT → C.EDB 10:42 → C.2E 13:22
PROVIDERS: ADMIT Hospitalist; ATTEND Internal Medicine
DX: I26.99 Other pulmonary embolism without acute cor pulmonale (principal); R79.89 Other specified abnormal findings of blood chemistry; I10 Essential (primary) hypertension; E66.01 Morbid (severe) obesity due to excess calories; M19.90 Unspecified osteoarthritis, unspecified site; F41.9 Anxiety disorder, unspecified; F32.9 Major depressive disorder, single episode, unspecified; I51.9 Heart disease, unspecified; Z96.651 Presence of right artificial knee joint; Z79.82 Long term (current) use of aspirin; Z79.1 Long term (current) use of non-steroidal anti-inflammatories (NSAID); Z79.899 Other long term (current) drug therapy; Z79.891 Long term (current) use of opiate analgesic; Z68.36 Body mass index [BMI] 36.0-36.9, adult

== ENCOUNTER → 2017-03-06 | Outpatient (CLI) | payer OTHER ==
[~2017-03-06] MED LIST changes: -NAPR1TAB9 PO; +PRT40 PO; +XARELTO PO; +XRL15 PO
[2017-03-06 17:33] LABS: BASO % 0.4 %; BASO ABS # 0.03 K/uL (0-0.2); COMPLETE YES; EOS % 5.4 %; HEMATOCRIT 40.1 % (37-47); IG% 0.3 %; LYMPH % 27.9 %; LYMPH ABS # 1.96 K/uL (1.2-3.4); MEAN CELL VOLUME 95.7 fL (80-100); MEAN CORPUSCULAR HEMOGLOBIN 30.8 pg (25-34); MEAN CORPUSCULAR HGB CONC 32.2 g/dl (32-36); MEAN PLATELET VOLUME 9.3 fL (7.4-10.4); MONO % 9.4 %; NEUT % 56.6 %; PLATELET COUNT 424 K/uL (130-400); RED BLOOD COUNT 4.19 M/uL (4.2-5.4); WHITE BLOOD COUNT 7.03 K/uL (4.8-10.8)
== END | disposition home or self-care (01) ==
LOC: C.LABBFT 09:55
PROVIDERS: ATTEND Physician Assistant Medical
DX: M25.569 Pain in unspecified knee (principal)

== ENCOUNTER 2018-06-07 03:51 | Emergency (ER) | payer OTHER ==
[~2018-06-07] VITALS: Ht 167.6 cm; Wt 111.9 kg
[~2018-06-07 03:51] MED LIST changes: +PANT1TAB4 PO; -PRT40 PO
[2018-06-07 03:58] VITALS: TEMP 36.5; Ht 167.6 cm; Wt 111.9 kg
[2018-06-07] MEDS ORDERED: METHYLPREDNISOLONE 125 MG VIAL IV STA (04:07)
[2018-06-07] MEDS ORDERED: SODIUM CHLORIDE 0.9% 1000ML 1,000 ML IV STA (04:07)
[2018-06-07] MEDS ORDERED: DiphenhydrAMINE HCL 50 MG/ML VIAL IV STA (04:07)
--- NOTE | 2018-06-07 04:09 | EMERGENCY ROOM VISIT NOTE ---
History Report prepared by Willy: Rosales Thomas Under the Supervision of: Dr. Kenna Valentin M.D. First contact with patient: 04:02 Chief Complaint: ALLERGIC REACTION Stated Complaint: HIVES History of Present Illness The patient is a 67 year old female who presents to the Emergency Room with complaints of a constant allergic reaction beginning this morning. The patient states that she first noticed that her lips were swelling before she went to bed. She notes that she took some Lysine before she went to sleep. She reports that she woke up this morning and noticed that she had hives all over her arms. She denies any SOB. The patient states that she had a similar episode a few years ago. Source of History: patient Onset: this morning Position: other (generalized) Quality: other (allergic reaction) Timing: constant Associated Symptoms: No SOB Note: The patient complains of swollen lips and of hives. Review of Systems See HPI for pertinent positives & negatives. A total of 10 systems reviewed and were otherwise negative. Past Medical & Surgical Medical Problems: (1) acute PE with right heart strain (2) acute PE with right heart strain (3) Failed Partial Knee Replacement Family History Hypertension Social History Smoking Status: Never Smoker Marital Status: Housing Status: lives with family Occupation Status: retired Current/Historical Medications Scheduled Acetaminophen (Tylenol Extra Strength), 1,000 MG PO Q8H Aspirin (Aspirin), 325 MG PO BID Losartan Potassium (Cozaar), 25 MG PO QAM Pantoprazole (Pantoprazole Sodium), 40 MG PO QAM Prednisone (Prednisone Tab), 0 PO DAILY Ranitidine Hcl (Zantac), 150 MG PO BID Rivaroxaban (Xarelto), 15 MG PO BIDM Sertraline (Zoloft), 25 MG PO QAM [Xarelto], 20 MG PO DAILY Scheduled PRN Oxycodone HCl (Oxycodone HCl), 5 MG PO Q4H PRN for Pain Allergies Coded Allergies: No Known Allergies (Unverified , 02/26/17) NFA Physical Exam Vital Signs Date Time Temp Pulse Resp B/P (MAP) Pulse Ox O2 Delivery O2 Flow Rate FiO2 06/07/18 05:34 58 18 156/90 97 06/07/18 05:04 58 18 156/90 97 Room Air 06/07/18 04:29 96 Room Air 06/07/18 03:58 36.5 65 18 181/75 97 Room Air Physical Exam GENERAL: Awake, alert, well-appearing, in no acute distress HENT: Normocephalic, atraumatic. Oropharynx unremarkable. lips mildly swollen EYES: Normal conjunctiva. Sclera non-icteric. NECK: Supple. No nuchal rigidity. FROM. No JVD. RESPIRATORY: Clear to auscultation. CARDIAC: Regular rate, normal rhythm. Extremities warm and well perfused. Pulses equal. ABDOMEN: Soft, non-distended. No tenderness to palpation. No rebound or guarding. No masses. RECTAL: Deferred. MUSCULOSKELETAL: Chest examination reveals no tenderness. The back is symmetrical on inspection without obvious abnormality. There is no CVA tenderness to palpation. No joint edema. LOWER EXTREMITIES: Calves are equal size bilaterally and non-tender. No edema. No discoloration. NEURO: Normal sensorium. No sensory or motor deficits noted. SKIN: Pt has multiple urticarial hives on arms Medical Decision & Procedures Medications Administered Medications (Trade) Dose Ordered Sig/Roderick Route Start Time Stop Time Status Last Admin Dose Admin Sodium Chloride 1,000 ml @ 999 mls/hr Q1H1M STAT IV 06/07/18 04:07 06/07/18 05:07 DC 06/07/18 04:21 999 MLS/HR Diphenhydramine HCl (Benadryl Inj) 50 mg NOW STAT IV 06/07/18 04:07 06/07/18 04:09 DC 06/07/18 04:21 50 MG Methylprednisolone Sodium Succinate (Solu-Medrol IV) 125 mg NOW STAT IV 06/07/18 04:07 06/07/18 04:09 DC 06/07/18 04:21 125 MG Ranitidine HCl (zANTac TAB) 150 mg NOW ONCE PO 06/07/18 04:15 06/07/18 04:16 DC 06/07/18 04:21 150 MG ED Course 0404: Past medical records reviewed. The patient was evaluated in room B12. A complete history and physical examination was performed. 0437: I reevaluated and updated the patient. She just received her medication. 0530: I rechecked the patient. She is feeling much better. 0548: Upon reexamination the patient is stable. I discussed results and treatment plan with the patient. She verbalizes agreement and understanding. The patient is ready for discharge. Medical Decision Differential diagnosis: Etiologies such as allergic reaction, anaphylaxis, urticaria, Varela-Jack syndrome, toxic epidermal necrolysis, erythema multiforme, cellulitis, as well as others were entertained. This is a 67-year-old female who presents emergency department complaining of swollen lips and hives to her body. An IV was established, the patient given a normal saline bolus, Benadryl, Zantac, site Medrol. Repeat examination revealed improvement in patient's symptoms. I will note that the patient does not have any stridor or wheezing on physical examination. Based on these findings I feel the patient can be safely discharged home. I did recommend prednisone as well as Zantac and Benadryl. Patient was in agreement with the treatment plan. Medication Reconcilliation Current Medication List: was personally reviewed by me Blood Pressure Screening Patient's blood pressure: Elevated blood pressure Blood pressure disposition: Elevated BP felt to be situational Impression Primary Impression: Allergic reaction Scribe Attestation The scribe's documentation has been prepared under my direction and personally reviewed by me in its entirety. I confirm that the note above accurately reflects all work, treatment, procedures, and medical decision making performed by me. Departure Information Dispostion Home / Self-Care Prescriptions Ranitidine Hcl (ZANTAC) 150 Mg Tab 150 MG PO BID for 7 Days, #14 TAB Prov: Kenan Valentin MD 06/07/18 Prednisone (Prednisone Tab) 20 Mg Tab 0 PO DAILY, #7 TAB 2 TABS DAILY FOR 2 DAYS, THEN 1 TAB DAILY FOR 2 DAYS, THEN 1/2 TAB DAILY FOR 2 DAYS. Prov: Kenan Valentin MD 06/07/18 Referrals Steven Acosta M.D. (PCP) Forms HOME CARE DOCUMENTATION FORM, IMPORTANT VISIT INFORMATION Patient Instructions [facility] Additional Instructions Take 50 mgBenadryl every 6 hours as needed You have been examined and treated today on an emergency basis only. This is not a substitute for, or an effort to provide, complete comprehensive medical care. It is impossible to recognize and treat all injuries or illnesses in a single emergency department visit. It is therefore important that you follow up closely with Dr Acosta. Call as soon as possible for an appointment. Thank you for your time and consideration. I look forward to speaking with you again soon. Please don't hesitate to call us if you have any questions. Problem Qualifiers Primary Impression: Allergic reaction Encounter type: initial encounter Qualified Codes: T78.40XA - Allergy, unspecified, initial encounter
[2018-06-07] MEDS ORDERED: RANITIDINE HCL 150 MG TAB PO ONE (04:15)
[2018-06-07] MEDS ORDERED: RANI150T3 PO (05:31)
[2018-06-07] MEDS ORDERED: PRED20TA2 PO (05:31)
[2018-06-07 05:34] VITALS: BP 156/90; PULSE 58; O2SAT 97
== END 2018-06-07 05:44 | disposition home or self-care (01) ==
LOC: C.EDB 03:53
DX: T78.40XA Allergy, unspecified, initial encounter (principal); X58.XXXA Exposure to other specified factors, initial encounter; L50.9 Urticaria, unspecified; R22.0 Localized swelling, mass and lump, head; Z79.82 Long term (current) use of aspirin; Z79.01 Long term (current) use of anticoagulants; Z86.711 Personal history of pulmonary embolism

== ENCOUNTER 2024-11-05 05:43 | Inpatient (IN) ==
--- NOTE | 2024-10-14 11:54 | PAT Medication Instructions ---
Medication Instructions Date of Service October 14, 2024 Home Medications Medication Instructions Recorded losartan 25 mg tablet 25 mg PO QAM #90 tabs 01/16/24 metformin 500 mg tablet 500 mg PO QAM #90 tabs 03/14/24 dicyclomine 20 mg tablet 20 mg PO QID #20 tabs 06/11/24 sertraline 100 mg tablet 150 mg (1.5 x 100 mg) PO QAM #135 08/05/24 tabs methylprednisolone 4 mg tablets in 4 mg PO UD #1 packet 08/26/24 a dose pack losartan 25 mg tablet 25 mg PO QAM metformin 500 mg tablet 500 mg PO QAM dicyclomine 20 mg tablet 20 mg PO QID sertraline 100 mg tablet 150 mg (1.5 x 100 mg) PO QAM methylprednisolone 4 mg tablets in a dose pack 4 mg PO UD ibuprofen 200 mg tablet (Advil) 400 mg PO Q6H PRN Pain Continue as directed methylprednisolone 4 mg tablets in a dose pack 4 mg PO UD ASK your surgeon for instructions ibuprofen 200 mg tablet (Advil) 400 mg PO Q6H PRN Pain DO NOT take the morning of surgery losartan 25 mg tablet 25 mg PO QAM metformin 500 mg tablet 500 mg PO QAM dicyclomine 20 mg tablet 20 mg PO QID Take morning of surgery With a small sip of water, OTHERWISE NOTHING TO EAT OR DRINK AFTER MIDNIGHT: sertraline 100 mg tablet 150 mg (1.5 x 100 mg) PO QAM Take evening before surgery dicyclomine 20 mg tablet 20 mg PO QID Other Notes If you have any questions please call us at [phone] or [phone] or [phone] or [phone]
--- NOTE | 2024-10-25 12:35 | Anesthesiology Consultation ---
Date of Service October 25, 2024 Assessment & Plan (1) Encounter for pre-operative examination: - Check BSG DOS - Infectious disease screening: Per assessment on 10/25/24- No known recent infectious disease contacts or current infectious disease symptoms. Chart Review Chart Review: Acceptable Risk for Surgery and Patient seen in Pre Admission Testing Teaching & Discussion Pre-Anesthesia Teaching/Discussion Notes: Instructed NPO after midnight before surgery,except medications with 15 cc of water. Medication instructions provide d according to the PAT guidelines. History Surgery Operation Date: 11/05/24 07:30 Proposed Procedures p L4-L5 Extreme Lateral Interbody Fusion with Percutaneous Screws - Gideon Poole MD Height/Weight Height: 5 ft 4 in Weight: 103.9 kg Allergies Allergy/AdvReac Type Severity Reaction Status Date / Time No Known Allergies Allergy Verified 10/14/24 10:46 Medications Home Medications Medication Instructions Recorded Confirmed Last Taken losartan 25 mg tablet 25 mg PO QAM #90 tabs 01/16/24 10/14/24 06/11/24 metformin 500 mg tablet 500 mg PO QAM #90 tabs 03/14/24 10/14/24 06/11/24 dicyclomine 20 mg tablet 20 mg PO QID #20 tabs 06/11/24 10/14/24 Unknown sertraline 100 mg tablet 150 mg (1.5 x 100 mg) PO QAM #135 08/05/24 10/14/24 Unknown tabs ibuprofen 200 mg tablet (Advil) 400 mg PO Q6H PRN Pain 10/14/24 10/14/24 Unknown Past Medical History Medical History Anxiety Chronic SI joint pain Depression Heart murmur Echo 12/2023: Trace AR History of COVID-19 08/2022- "sinus infection symptoms" > resolved History of postoperative nausea and vomiting Hx pulmonary embolism 2017 s/p knee surgery Hypertension Low back pain Spinal stenosis Type 2 diabetes mellitus Exercise / Class Metabolic Activity III < 4 Walking/Shop/Light housework Past Family History Family History Other Diabetes Denies family history of Ovarian cancer Prostate cancer Coronary heart disease Cerebral aneurysm Heart disease Myocardial infarction Breast cancer Lung cancer Colorectal cancer Cancer Stroke Past Surgical History Surgical History History of colonoscopy with polypectomy History of total left knee replacement History of total right knee replacement Hx of total hysterectomy with removal of both tubes and ovaries [place] teeth extracted Past Anesthesia History No Hx of Anesthesia Complications and No Family Hx of Anesthesia Complications History of PONV No Hx of Motion Sickness and History of PONV Social History Smoking Status: Never smoker Do You Dip or Chew Tobacco: No Hx Alcohol Use: Yes alcohol intake frequency: holidays/special occasions only Hx Substance Use: No substance use type: does not use Review of Systems Patient denies chest pain, shortness of breath, fever, chills, cough, wheezing, palpitations. Physical Exam Vital Signs BP 134/83 P 69 TEMP 98.5 SP02 97%RA RESP 16 Physical Full cervical extension range of motion. Full TMJ range of motion. TMD > 3.5 finger breaths Mallampati Score II Dentition: several missing (including upper front) Lungs: clear throughout to auscultation Cardiac: regular rate and rhythm, II/ systolic murmur Spine: normal Carotid arteries: negative bruit Extremities: no LE edema Lab Results Anesthesia Preop Results Results Anesthesia Widget: WBC 5.86 K/ul (4.8-10.8) 10/25/24 Hgb 12.9 g/dl (12.0-16.0) 10/25/24 Hct 38.9 % (37.0-47.0) 10/25/24 Plt 260 K/uL (130-400) 10/25/24 Na 138 mmol/L (136-145) 10/25/24 K 4.7 mmol/L (3.5-5.1) 10/25/24 Cl 106 mmol/L (98-107) 10/25/24 CO2 27 mmol/L (21-32) 10/25/24 BUN 19 mg/dl (6-23) 10/25/24 Creat 0.80 mg/dl (0.6-1.2) 10/25/24 Glucose Level 147 mg/dl (70-99(Fasting)) H 10/25/24 PT 11.1 Seconds (9.0-12.0) 10/25/24 PTT 26 Seconds (21-31) 10/25/24 INR 1.0 (0.9-1.1) 10/25/24 HA1c 5.9 % (4.5-5.6) H 10/25/24 Blood Type A Negative 10/25/24 Antibody Screen NEGATIVE 10/25/24 Testing Electrocardiogram Date: 12/11/23 SR at 66bpm. LAD. No significant change compared to 01/24/2022 per confirming provider. Chest X-Ray Date: 06/11/24 FINDINGS: An AP, portable, upright chest radiograph is compared to study dated 11/02/2021. The heart is mildly enlarged noting atherosclerotic calcification of the thoracic aorta. The pulmonary vasculature is noncongested. Chronic interstitial thickening is similar to previous. There is mild bibasilar scarring/atelectasis. No airspace consolidation or pleural effusion is identified. No pneumothorax is seen. The skeletal structures are osteopenic. The bony thorax is grossly intact. IMPRESSION: No active disease in the chest. Echocardiogram Date: 01/05/24 LVEF 65 to 70%. No regional wall motion abnormality. Mild concentric LVH. Trace AR. Normal estimated RA pressure. Other Testing Cardiac event monitor Date: 12/23/23 Analysis length: 12d 5h 50min Normal sinus rhythm throughout. Rare PACs/PVCs. No atrial fibrillation or flutter. No pauses were inappropriate bradycardias. No corresponding dysrhythmia to any diary entries.
[2024-11-05] MEDS: LR 15ML/HR IV SCH (06:25)
[2024-11-05] MEDS: GABAPENTIN 300 MG CAP PO SCH (06:25)
[2024-11-05] MEDS: ACETAMINOPHEN 500 MG TAB PO SCH (06:25)
[2024-11-05] MEDS ORDERED: LIDOCAINE 2% 2 ML VIAL/AMP(20MG/ML) INFIL ONE ×2 (07:02)
[2024-11-05] MEDS ORDERED: MIDAZOLAM HCL 1 MG/ML 2ML VIAL ONE (07:02)
[2024-11-05] MEDS ORDERED: fentaNYL citrate PF 100 MCG/2 ML VIAL ONE ×3 (07:02→10:33)
[2024-11-05] MEDS ORDERED: ONDANSETRON INJ 2 MG/ML 2 ML VIAL ONE (07:02)
[2024-11-05] MEDS ORDERED: DEXAMETHASONE SOD INJ 4 MG/ML VIAL ONE (07:02)
[2024-11-05] MEDS ORDERED: PROPOFOL IV EMULSION 10 MG/ML 20 ML VIAL IV ONE ×5 (07:02→11:40)
[2024-11-05] MEDS ORDERED: fentaNYL citrate PF 100 MCG/2 ML VIAL IV PRN (07:03)
[2024-11-05] MEDS ORDERED: ONDANSETRON INJ 2 MG/ML 2 ML VIAL IV PRN ×2 (07:03→13:26)
[2024-11-05] MEDS ORDERED: ATROPINE SULFATE 0.1 MG/ML 10ML SYR IV PRN (07:03)
[2024-11-05] MEDS ORDERED: ROCURONIUM BROMIDE 10 MG/ML 5 ML VIAL IV ONE (07:03)
[2024-11-05] MEDS ORDERED: ePHEDrine sulfate 50 MG/ML AMP IV PRN (07:03)
[2024-11-05] MEDS ORDERED: HYDROmorphone INJ 1 MG/ML SYRINGE IV PRN (07:03)
[2024-11-05] MEDS ORDERED: KETAMINE HCL 10MG/ML SYR ONE ×2 (07:20→08:54)
--- NOTE | 2024-11-05 07:29 | History & Physical Bridge Note ---
Date of Service November 05, 2024 History & Physical Bridge Note I have examined the patient, reviewed the History & Physical and in the interval since the performance of the History & Physical I have noted the following changes of clinical significance: no changes noted
[2024-11-05] MEDS: LR 60ML/HR IV SCH (07:40)
[2024-11-05] MEDS: ceFAZolin 2000MG 2,000 MG/15 ML SYR IV SCH ×2 (08:07→18:36)
[2024-11-05] MEDS ORDERED: ePHEDrine sulfate 50 MG/5 ML SYR ONE (08:25)
[2024-11-05] MEDS ORDERED: ePHEDrine sulfate 50 MG/ML AMP ONE (08:25)
[2024-11-05] MEDS ORDERED: GLYCOPYRROLATE 0.2 MG/ML VIAL ONE (08:52)
[2024-11-05] MEDS ORDERED: SUGAMMADEX SODIUM 200 MG/2 ML VIAL IV ONE (09:30)
[2024-11-05] MEDS ORDERED: ceFAZolin 330 MG/ML 1 GM VIAL ONE (12:14)
[2024-11-05] MEDS: BUPIVACAINE/EPINEPHRINE 0.5% MPF 1:200,000 30 ML VIAL ONE (12:30)
[2024-11-05] MEDS: THROMBIN 5000 UNITS KIT ONE (12:31)
[2024-11-05] MEDS: VANCOMYCIN HCL 1000MG/20ML VIAL ONE (12:32)
[2024-11-05] MEDS: GELATIN SPONGE 12-7MM ONE (12:32)
[2024-11-05] MEDS ORDERED: MoRPHine SULFATE 2 MG/ML CARP ONE (12:41)
--- NOTE | 2024-11-05 13:25 | Post Operative Brief Note ---
PG Immediate Post Op with CF Date of Surgery November 05, 2024 Pre & Post Diagnosis Operation Date: 11/05/24 07:30 Pre-Op Diagnosis: Lumbar Radiculopathy; Degenerative Spondylolisthes; Lumbar pain with radiation down both legs Post-Op Diagnosis: Lumbar Radiculopathy; Degenerative Spondylolisthes; Lumbar pain with radiation down both legs I identified the patient and participated in the time-out.: Yes Procedure Operation Date: 11/05/24 07:30 Actual Procedures p L4-L5 Extreme Lateral Interbody Fusion with Percutaneous Screws, Spinal Cord Monitoring(Right) - Gideon Poole MD Surgeon Gideon Poole MD [employer] Ace Cottrell Estimated Blood Loss 30 Findings Consistent with Post-Op Diagnosis Specimens Specimen Description: No Specimen Drains Frey Catheter
[2024-11-05] MEDS ORDERED: METOCLOPRAMIDE HCL INJ 5 MG/ML 2 ML VIAL IV PRN (13:26)
[2024-11-05] MEDS ORDERED: MAGNESIUM HYDROXIDE SUSP 30 ML UDC PO PRN (13:26)
[2024-11-05] MEDS ORDERED: PHARMACY GLYCEMIC MGMT CONSULT PRN (13:26)
[2024-11-05] MEDS ORDERED: ALUMINUM/MAGNESIUM SUSP 30 ML UDC PO PRN (13:26)
[2024-11-05] MEDS ORDERED: bisacodyL 10 MG SUPP PR PRN (13:26)
[2024-11-05] MEDS ORDERED: NALOXONE HCL 0.4 MG/1 ML VIAL/CARP IV PRN (13:26)
[2024-11-05] MEDS ORDERED: HYDROmorphone INJ 0.5 MG/0.5 ML SYR IV PRN ×2 (13:26→14:04)
[2024-11-05] MEDS ORDERED: FAMOTIDINE 20 MG TAB PO PRN (13:26)
[2024-11-05] MEDS ORDERED: DO NOT ADMINISTER FLU VACCINE PRN (13:26)
[2024-11-05] MEDS ORDERED: SOD PHOSPHATE/SOD BIPHOSPHATE ENEMA 132 ML BTL PR PRN (13:26)
[2024-11-05] MEDS ORDERED: ONDANSETRON 4 MG OD TAB PO PRN (13:26)
[2024-11-05] MEDS ORDERED: hydrOXYzine HCl 25 MG TAB PO PRN (13:26)
[2024-11-05] MEDS ORDERED: diphenhydrAMINE Capsule 25 MG CAP PO PRN (13:26)
[2024-11-05] MEDS ORDERED: DO NOT ADMINISTER PNEUMOCOCCAL VACCINE PRN (13:26)
[2024-11-05] MEDS ORDERED: LORazepam 0.5 MG TAB PO PRN (13:26)
[2024-11-05] MEDS ORDERED: ACETAMINOPHEN 1,000 MG/100 ML VIAL IV PRN (13:26)
[2024-11-05] MEDS ORDERED: PROMETHAZINE 12.5 MG/50.5 ML BAG IV PRN (13:26)
[2024-11-05] MEDS ORDERED: LORazepam 2 MG/1 ML VIAL IV PRN (13:26)
--- NOTE | 2024-11-05 14:18 | Fluoroscopy Report ---
FL lumbar spine 2-3V CLINICAL HISTORY: L4-L5 LATERAL INTERBODY FUSION TECHNIQUE: 11 views were obtained with the C-arm in the OR with the above procedure. Total fluoroscop y time was 177.2 seconds. Radiation dose was 138.84 mGy. Comparison: Comparison is made to MR lumbar spine 09/05/2024 FINDINGS/IMPRESSION: Intraoperative images were obtained of L4-L5 lateral interbody fusion. Please correlate with intraoperative fluoroscopy and operative report. ACT 112: Negative or not required by law. Electronically signed by: Tai Vidal M.D. 11/05/2024 2:16 PM
--- NOTE | 2024-11-05 14:33 | Anesthesiology Progress Note ---
Date of Service November 05, 2024 Anesthesia Post Procedure Vital Signs Vital Signs: Temp Pulse Pulse Resp BP Pulse Ox O2 Del Method 11/05/24 14:25 36.3 C L 78 17 167/85 H 96 Nasal Cannula 11/05/24 14:15 74 15 156/75 H 93 Nasal Cannula 11/05/24 14:05 66 14 156/76 H 95 Oxymask 11/05/24 13:55 65 14 156/75 H 96 Oxymask 11/05/24 13:45 66 15 153/77 H 96 Oxymask 11/05/24 13:35 36.2 C L 77 17 176/75 H 94 Oxymask 11/05/24 06:12 36.6 C 64 20 164/78 H 95 Room Air O2 Flow Rate 11/05/24 14:25 2 11/05/24 14:15 2 11/05/24 14:05 2 11/05/24 13:55 4 11/05/24 13:45 6 11/05/24 13:35 6 11/05/24 06:12 Transfer of Care Handoff Completed per policy Notes Mental Status: alert / awake / arousable and participated in evaluation Patient Amnestic to Procedure: Yes Nausea / Vomiting: adequately controlled Pain: adequately controlled Airway Patency, RR, SpO2: stable & adequate BP & HR: stable & adequate Hydration State: stable & adequate Anesthetic Complications: no major complications apparent and Pt Satisfied with anesthetic care
--- NOTE | 2024-11-05 15:02 | Hospitalist Consultation ---
Date of Consultation November 05, 2024 Assessment & Plan (1) Hypertension: (2) Type 2 diabetes mellitus without complication: (3) Degenerative spondylolisthesis: Plan Polly is a 74F with a PMHx of heart murmur, HLD, DMT2, HTN, insomnia, hx of PE, and depression who presents to the ED for elective back surgery with Dr. Poole om 11/05.. #HTN Hold losartan pending AM labs AM BMP #DMT2 Metformin Held. Phamaracy glycemic consult per primary. #Degenerative Spondylolisthesis/ Post op hypoxia S/p L4-L5 Extreme Lateral Interbody Fusion with Percutaneous Screws with De. Poole 11/05 DVT proh/ pain control/ abx/ dc planning per primary EBL 30 - AM CBC Requiring 2L NC post operatively, attempt to wean as mental status improves Pt somnolent after anesthesia - if unable to stay awake long enough to eat will add maintenance fluids. Consider Narcan if worsening #Depression - continue Zoloft Dispo: continued inpatient stay Thank you for allowing us to participate in the care of this patient, please reach out with any questions or concerns Supervising Physician Co-Signing Physician Notes Attending Attestation & Consult Note: Pt seen/examined, chart reviewed, care plan d/w YUE Sanderson. I agree w/ the mcnulty components of her consult documentation. 74yo female with T2DM, HTN, hyperlipidemia, prior h/o PE, depression. Underwent elective lumbar back surgery with Dr Poole today. Specifically, Dr Poole performed L4-L5 Extreme Lateral Interbody Fusion with Percutaneous Screws. EBL - 30ml. When I saw her late in the day today she was resting comfortably in bed. She complained of pain in her right hip region - "stiffness" - and reports some difficulty moving the right leg because of such. No left leg issues. No chest pain, dyspnea, nausea. PMH/PSH/allergies/meds/sochx/famhx - reviewed VSS gen - lying flat in bed comfortably, NAD mouth - MMM neck - no JVD heart - RRR, s 1 s2 lungs - CTA b/l abd - soft, NT, ND, BS+ ext - no edema, pulses 2+ b/l neuro - strength 5/5 b/l hip flexion and distal strength of ankles/feet psych - a/o x 3 A/P: 1. s/p lumbar fusion at L4-L5 - per Dr Poole 2. T2DM - pharmacy glycemic team has been consulted for management 3. HTN - hold losartan, check BMP in am 4. h/o PE - SCDs for now; chemical DVT proph is contraindicated with spine surgery at this time Thank you for this consult Will follow Miguel Ahuja MD History of Present Illness Reason for Consultation: surgery Requesting Physician: Dr. Poole Attending Physician: Gideon Poole MD History of Present Illness Polly is a 74F with a PMHx of heart murmur, HLD, DMT2, HTN, insomnia, hx of PE, and depression who presents to the ED for elective back surgery with Dr. Poole. Patient lying in bed in 320, no family present at bedside. Awakens to verbal stimuli, very sleepy post anesthesia. Patient denies pain and states she is hungry. Falls alseep otherwise. Only answering one word questions. Allergies Allergy/AdvReac Type Severity Reaction Status Date / Time No Known Allergies Allergy Verified 11/05/24 06:09 Home Medications Medication Instructions Recorded Confirmed Type losartan 25 mg tablet 25 mg PO QAM #90 tabs 01/16/24 11/05/24 Rx metformin 500 mg tablet 500 mg PO QAM #90 tabs 03/14/24 11/05/24 Rx sertraline 100 mg tablet 150 mg (1.5 x 100 mg) PO QAM #135 08/05/24 11/05/24 Rx tabs tramadol 50 mg tablet 50 mg PO Q8H PRN pain #30 tabs 11/06/24 Rx Patient History Medical History Anxiety Chronic SI joint pain Depression Heart murmur Echo 12/2023: [facility] History of COVID-19 08/2022- "sinus infection symptoms" > resolved History of postoperative nausea and vomiting Hx pulmonary embolism 2017 s/p knee surgery Hypertension Low back pain Spinal stenosis Type 2 diabetes mellitus Surgical History History of colonoscopy with polypectomy History of total left knee replacement History of total right knee replacement Hx of total hysterectomy with removal of both tubes and ovaries [place] teeth extracted Family History Other Diabetes Denies family history of Ovarian cancer Prostate cancer Coronary heart disease Cerebral aneurysm Heart disease Myocardial infarction Breast cancer Lung cancer Colorectal cancer Cancer Stroke Social History Smoking Status: Never smoker Second Hand Exposure: No; Do You Dip or Chew Tobacco: No; Tobacco Cessation Education Requested by Patient: No Hx Alcohol Use: Yes Alcohol Intake Frequency: Monthly or Less Hx Substance Use: No Preferred Language: Icelandic Communication Ability: Effective Hearing Ability: Normal Timber Management Assistant Required: No Beliefs That Will Affect Care: None marital status: Current Living Situation: Spouse current occupational status: retired Other Information That Helps Us Care for You: No Feels Safe at Home: Yes Safety Concerns: Feels Safe At This Time Childhood Exposure to Second-Hand Smoke: Yes Diet: regular caffeine: Yes Dental Care, Regularly: Yes Physical Activity Frequency: Does not Exercise Seatbelt Use: sometimes Sunscreen Use: No Assistive Devices: Walker Review of Systems Review of Systems: All systems reviewed & are unremarkable except as noted in Subjective Physical Exam Physical Exam: General: NAD, VS as above, very tired awakes to verbal stimuli Resp: normal respiratory effort, lungs clear to auscultation. On 2L NC 99% did not attempt to wean given mental status CV: RRR, + Blowing murmur, Abd: normal bowel sounds, non tender, Extremities: SCDs to b/l LE, able to wiggle toes bilterally Neuro: A&O x1, Results & Data Results & Data Vital Signs (Past 12 Hours) Vital Signs Temp Pulse Pulse Resp BP Pulse Ox O2 Del Method 11/05/24 14:40 97.5 F L 77 15 167/74 H 99 Nasal Cannula 11/05/24 14:25 97.3 F L 78 17 167/85 H 96 Nasal Cannula 11/05/24 14:15 74 15 156/75 H 93 Nasal Cannula 11/05/24 14:05 66 14 156/76 H 95 Oxymask 11/05/24 13:55 65 14 156/75 H 96 Oxymask 11/05/24 13:45 66 15 153/77 H 96 Oxymask 11/05/24 13:35 97.2 F L 77 17 176/75 H 94 Oxymask 11/05/24 06:12 97.9 F 64 20 164/78 H 95 Room Air O2 Flow Rate 11/05/24 14:40 2 11/05/24 14:25 2 11/05/24 14:15 2 11/05/24 14:05 2 11/05/24 13:55 4 11/05/24 13:45 6 11/05/24 13:35 6 11/05/24 06:12 PG Care Time/CCT Total # of Minutes Spent Total Time Spent with Patient: Total time spent is greater than 50% in coordination of care (as documented) at patient's floor/unit and/or counseling patient: Coding Level of Care Code 04903 IN/OBS CONSULT LVL 3,45M Diagnoses Hypertension I10 Type 2 diabetes mellitus without complication E11.9 Degenerative spondylolisthesis M43.10
[2024-11-05] MEDS ORDERED: GLUCAGON FOR INJ 1 MG VIAL SQ PRN (15:15)
[2024-11-05] MEDS ORDERED: CARBOHYDRATES FOR HYPOGLYCEMIA PO PRN (15:15)
[2024-11-05] MEDS ORDERED: GLUCOSE 40% GEL 15 GM TUBE PO PRN (15:15)
[2024-11-05] MEDS ORDERED: DEXTROSE 50% 50 ML SYRINGE IV PRN (15:15)
[2024-11-05] MEDS ORDERED: GLUCOSE 10 TAB/TUBE PO PRN (15:15)
[2024-11-05] MEDS: INSULIN ASPART PER UNIT CHARGE SC SCH (15:25)
--- NOTE | 2024-11-05 15:29 | Pharmacy Report ---
Pharmacy Glycemic Short Note 2 - Date of Service November 05, 2024 - Glycemic Short BSG Results (Last 24 hours): 11/05/24 11/05/24 11/05/24 06:08 13:37 15:00 POC Glucose 101 H 148 H 143 H OUTPATIENT ANTIDIABETIC REGIMEN: * metformin 500mg QAM * HbA1c 5.9% (10/25/24) ASSESSMENT: * Polly is a 74 YOF admitted status post spinal fusion with a history of T2DM. Pharmacy has been consulted to assist with glycemic management while inpatient. * Preoperative BSG this AM controlled, dexamethasone 8mg IV given preoperatively, no ongoing steroids ordered, will hold basal insulin at this time. * NovoLog initiated at a weight based stress of 2 PLAN FOR INPATIENT GLYCEMIC CONTROL: * Hold outpatient oral diabetes medications * Basal insulin * Hold * Bolus insulin * NovoLog per scale ACHS or Q6hrs while NPO * Goal Range: Low 110 mg/dL - High 140 mg/dL * Correction Factor: 25 mg/dL/unit * Nutritional / Prandial insulin per carb ratio of 1 unit per 8 grams CHO consumed
[2024-11-05] MEDS ORDERED: ceFAZolin 1000MG 1,000 MG/7.5 ML SYR IV SCH (19:30)
[2024-11-05] MEDS: DOCUSATE SODIUM/SENNA 50/8.6MG TAB PO SCH (20:45)
[2024-11-05] MEDS: oxyCODONE/ACETAMINOPHEN 5mg/325mg TAB PO PRN (20:45)
[2024-11-06] MEDS: POLYETHYLENE (MIRALAX) 17 GM PACK PO SCH (06:23)
[2024-11-06 07:19] LABS: Hematocrit (blood only) 33.7 % (37.0-47.0); Hemoglobin 11.3 g/dl (12.0-16.0); Mean Corpuscular Hemoglobin 30.8 pg (25.0-34.0); Mean Corpuscular Hgb Conc 33.5 g/dL (32.0-36.0); Mean Corpuscular Volume 91.8 fL (80.0-100.0); Mean Platelet Volume 9.8 fL (9.4-12.4); Platelet Count 232 K/uL (130-400); RDW Coefficient of Variation 13.8 % (11.5-14.5); RDW Standard Deviation 47.1 fL (36.4-46.3); Red Blood Count 3.67 M/uL (4.20-5.40); White Blood Count 11.09 K/ul (4.8-10.8)
[2024-11-06 07:36] LABS: BUN Creatinine Ratio 18.2 (10-20); Calcium 9.8 mg/dl (8.6-10.3); Creatinine Clr Calc Pharmacy 72.5 ml/min; Potassium 3.9 mmol/L (3.5-5.1)
[2024-11-06 07:58] VITALS: RESP 18; TEMP 98.6
--- NOTE | 2024-11-06 08:06 | Hospitalist Progress Note ---
Date of Service November 06, 2024 Assessment & Plan (1) Hypertension: (2) Type 2 diabetes mellitus without complication: (3) Degenerative spondylolisthesis: Plan Polly is a 74F with a PMHx of heart murmur, HLD, DMT2, HTN, insomnia, hx of PE, and depression who presents to the ED for elective back surgery with Dr. Poole on 11/05.. #HTN Hold losartan pending AM labs AM BMP #DMT2 Metformin Held. Phamaracy glycemic consult per primary. #Degenerative Spondylolisthesis/ Post op hypoxia S/p L4-L5 Extreme Lateral Interbody Fusion with Percutaneous Screws with De. Poole 11/05 DVT proh/ pain control/ abx/ dc planning per primary EBL 30 - AM CBC Requiring 2L NC post operatively, attempt to wean as mental status improves Pt somnolent after anesthesia - if unable to stay awake long enough to eat will add maintenance fluids. Consider Narcan if worsening #Depression - continue Zoloft Dispo: continued inpatient stay Thank you for allowing us to participate in the care of this patient, please reach out with any questions or concerns Admission and Anticipated Discharge Date Admission Date: November 05, 2024 Results & Data Results & Data Vital Signs (Past 12 Hours) Vital Signs Temp Pulse Pulse Resp BP Pulse Ox O2 Del Method 11/06/24 07:57 37.0 C 72 18 121/74 90 Room Air 11/06/24 03:07 36.8 C 77 20 123/67 93 Room Air 11/05/24 23:01 36.8 C 82 16 144/65 H 95 Room Air 11/05/24 20:15 36.5 C 81 18 144/81 H 95 Room Air PG Care Time/CCT Total # of Minutes Spent Total Time Spent with Patient: Total time spent is greater than 50% in coordination of care (as documented) at patient's floor/unit and/or counseling patient: Coding Diagnoses Hypertension I10 Type 2 diabetes mellitus without complication E11.9 Degenerative spondylolisthesis M43.10
[2024-11-06] MEDS: ACETAMINOPHEN 500 MG TAB PO PRN (08:09)
[2024-11-06] MEDS: SERTRALINE HCL 50 MG TABLET PO SCH (08:14)
[2024-11-06] MEDS ORDERED: metFORMIN HCL 500 MG TAB PO SCH (09:00)
[2024-11-06] MEDS ORDERED: LOSARTAN POTASSIUM 25 MG TAB PO SCH (09:00)
[2024-11-06] MEDS: metFORMIN HCL 500 MG TAB PO SCH (10:23)
--- NOTE | 2024-11-06 11:31 | Discharge Summary ---
Date of Service November 06, 2024 Admission HPI Per Admitting Provider Patient returns for follow-up for her upcoming surgery on November 05, she has combination of low back pain and bilateral lower extremity pain in the lower extremities. Previous radiographs upright of the lumbar spine from August 26, 2024 reveals the patient have some degenerative scoliosis present approximately 13 degrees of dextroscoliosis when measuring from the top of L5 to mild to within compensation above. There is grade 1 anterolisthesis of L5 4 on L5, then notable degenerative changes involving the remaining lumbar levels especially at L1-2 and L2-3 with transitional anatomy at L5-S1, nonmotion segment. Review of MRI images from [facility] from September 05, 2024 of the lumbar spine, this is my separate interpretation, this reveals the patient have sacralization at L5, first 3 motion segment is at L4-5 with grade 1 anterolisthesis, there is combination of foraminal stenosis actually slightly worse on the left in the moderate range to a lesser degree on the right, facet arthropathy with grade 1 degenerative spondylolisthesis. Additional degenerative changes at the more cephalad levels. Impression: Degenerative spondylolisthesis at L4-5 with combination of chronic low back pain and right leg L5 type radicular symptoms unimproved with prior injections both facet ablations and also epidural injections in the past year. Plan: Today I reviewed with her and her the nature of the surgery, lateral cage placement at the L4-5 level with percutaneous posterior instrumentation. I went through the details once again, the length of the surgery, and answered a number of questions. I emphasized to her that she has a variety of findings over several levels in her lumbar spine, any of which could be causing some back pain, but the L4-5 level most likely is the cause of some of her symptoms secondary to the previous injections and the findings on the radiographs and MRI. I related that her lower extremity symptoms could be a combination of neuropathy or other sources including the foraminal stenosis primarily on the left at L4-5, she understands this we will move ahead with the surgery as planned with follow-up 2 weeks later. Admission Exam (Per Admitting) Musculoskeletal 10/03/24: Exam reveals the patient indicate pain right lumbosacral junction. She can raise up on toes and heels any weakness. While seated I could elicit 1/4 knee reflexes absent ankle reflexes. Intact strength EHL, she had a positive straight leg raise for some back pain and some right thigh symptomatology, negative on the left. 10/25/24: No changes in exam pain indicated lower lumbar spine, no focal motor weakness. Discharge Data Consultations 11/05/24 13:32 Consult Hospitalist Routine Procedures Performed Operation Date: 11/05/24 07:30 Actual Procedures p L4-L5 Extreme Lateral Interbody Fusion with Percutaneous Screws, Spinal Cord Monitoring(Right) - Gideon Poole MD Hospital Course (1) Degenerative spondylolisthesis: (2) Lumbar radiculopathy: (3) Spondylosis of lumbar spine: (4) S/P lumbar spinal fusion: Pt seen and examined, some incisional pain but out of bed and ambulating. N/V intact. Plan: DC home today with follow up in 2 weeks. Plan On November 05, 2024 Polly arrived at [facility] operating room and underwent L4-L5 Extreme Lateral Interbody Fusion with Percutaneous Screws, Spinal Cord Monitoring(Right) without complications. Patient had general anesthesia for the procedure. Patient was admitted to the general orthopedic floor in stable condition postoperatively for pain control and mobilization with physical therapy; they safely and properly performed the ADL tasks demonstrated by PT/OT and met all goals. Pain was controlled with oral medications. Normal return of bowel and bladder function. They worked with therapy, vital signs were acceptable, no need for transfusion, deemed safe for discharge. Patient was then discharged home in stable condition, with self-care and assistance from her . Patient will follow-up with Dr. Poole in the orthospine clinic in approximately 2 weeks, as scheduled, for postoperative care.
[2024-11-06 12:00] VITALS: BP 142/61; PULSE 67; O2SAT 95
--- NOTE | 2024-11-06 13:25 | Communication Note ---
Date of Service: November 06, 2024 Discussed with primary service as discharge order already in place and does not feel needing to be seen by hospitalist service. Labs/chart/vitals reviewed, WBC elevation likely 2nd to stress/surgery, afebrile. Hgb 12.9--> 11.3, acute blood loss anemia from surgery/dilutional aspect from IVF but BP/renal function stable. Losartan resumed given stable renal function/BP 142/61 and plans for discharge this afternoon. Please contact hospitalist service with any questions/concerns. Thank you.
--- NOTE | 2024-11-06 15:50 | Operative Report ---
PG Post Operative Report Pre & Post Diagnosis Operation Date: 11/05/24 07:30 Pre-Op Diagnosis: Lumbar Radiculopathy; Degenerative Spondylolisthes; Lumbar pain with radiation down both legs Post-Op Diagnosis: Lumbar Radiculopathy; Degenerative Spondylolisthes; Lumbar pain with radiation down both legs I identified the patient and participated in the time-out.: Yes Procedure Operation Date: 11/05/24 07:30 Actual Procedures p L4-L5 Extreme Lateral Interbody Fusion with Percutaneous Screws, Spinal Cord Monitoring(Right) - Gideon Poole MD Surgeon Gideon Poole MD Mimeograph Operator Ace Cottrell Estimated Blood Loss 30 Findings Consistent with Post-Op Diagnosis Specimens none Description of Procedure 1. L4-5 right lateral interbody arthrodesis. (78569) 2. L4-5 right lateral interbody cage, NuVasive cohere XL 8 x 18 x 55] mm lordotic. (45219) 3. L4-5 posterior nonsegmental instrumentation, Medtronic. (84227). 4. Stereotactic CT-guided navigation for instrumentation. (11528) Patient was taken the operating room and after adequate anesthesia was carefully positioned in the left lateral decubitus position, right side up. Once in that position and then moved ahead with obtaining fluoroscopic images and securing the patient to the operating room table in the standard fashion for a right- sided approach to the L4-5 level. Once doing so, I was able to edu the area for the incision followed by prepping and draping. A transverse incision was made over the iliac crest, advanced down through the subcutaneous tissues and through the tissues to was able to enter the retroperitoneal region right carefully advanced the abdominal contents anteriorly was able to palpate the psoas. I then inserted the initial dilator from the NuVasive set advanced down to the lateral aspect of the L4-5 disc space, monitoring was used to confirm the location along with fluoroscopy relative to any neurologic structures, the guidewire was set. This was then advanced by the additional dilators followed by the access apparatus. Additional imaging was performed to make adjustments for proper approach to the L4-5 level, and this was secured with a nica after us visually inspecting the region and also using the monitoring probe. The lateral annulus was then incised followed by then removal of disc material from the disc space using a combination of instruments. Care was taken to remove the disc material and also cartilage from the endplates. Once this was completed, I went through trials selecting the size cage as noted which appeared to fit the interspace well and provide reduction of the spondylolisthesis. Fusion materials were then placed within the disc space and, the access apparatus was removed final inspection revealed no issues, and I then placed vancomycin powder and closed the operative site with 0 Vicryl sutures followed by 2-0 Vicryl sutures and reinier for the skin. The patient was repositioned onto the Ollie frame, preprepped with been performed beginning of the procedure. Prep and drape was performed, began the procedure with making small stab wound over the right posterior iliac crest, from here I then inserted a fluted post into the iliac crest for placement of the array for the CT-guided navigation. Once placed, drapes were applied, the O-arm was brought in and a spin was then performed. This information was then utilized for the navigation system which had been prepped for the procedure, and I began the procedure with 2 incisions on either side of L4-5. I utilized the navigation system to guide placement of a tap was then advanced utilizing the navigation system into the pedicles of L5 bilaterally without issue, monitoring was also utilized to confirm the location. Once this was completed, 6.5 millimeter screws, 45 mm in length from the Medtronic set were then inserted. The same procedure was then performed for L4, and once the screws were placed in a similar fashion, we then performed a spin, review of this information revealed proper placement of the instrumentation, also noting the placement of the cage in proper position. Rods were then selected, I applied slight distraction to the patient's left side where there was slight collapse asymmetrically at that level, and setscrews were all torqued down properly. The extensions from the screws were then removed, the guide post was also removed, operative sites were irrigated, vancomycin powder was placed. The fascial layers were then sewn with 0 Vicryl sutures followed by 2-0 Vicryl sutures and reinier for the skin for skin closure. Patient tolerated the procedure well, dressings were applied, the physician plumber's assistant was present for and participated in all aspects of the surgical procedure. I attest to the content of the Intraoperative Record and any orders documented therein. Any exceptions are noted below. I attest to the content of the Intraoperative Record and any orders documented therein. Any exceptions are noted below.
== END 2024-11-06 13:50 | disposition home or self-care (01) | DRG 402 ==
LOC: ASU 05:43 → 3E 13:26
DX: F41.9 Anxiety disorder, unspecified; Z96.653 Presence of artificial knee joint, bilateral; Z79.84 Long term (current) use of oral hypoglycemic drugs; Z86.711 Personal history of pulmonary embolism; M41.56 Other secondary scoliosis, lumbar region; E78.5 Hyperlipidemia, unspecified; F32.A Depression, unspecified; M43.16 Spondylolisthesis, lumbar region; E11.9 Type 2 diabetes mellitus without complications; R09.02 Hypoxemia; Z83.3 Family history of diabetes mellitus; I10 Essential (primary) hypertension; M47.26 Other spondylosis with radiculopathy, lumbar region